=== PATIENT | male | born 1955 | race Caucasian/White ===

== ENCOUNTER 2020-04-02 14:15 | Emergency (ER) | payer OTHER ==
[~2020-04-02] VITALS: Ht 167.6 cm; Wt 74.8 kg
[2020-04-02 14:53] LABS: BASOPHILS ABSOLUTE AUTO 0.05 K/mm3 (0.00-0.23); BASOPHILS PERCENT AUTO 1 % (0-2); EOSINOPHILS ABSOLUTE AUTO 0.17 K/mm3 (0.00-0.68); EOSINOPHILS PERCENT AUTO 2 % (0-6); Hematocrit 45.5 % (37.0-53.0); Hemoglobin 15.3 g/dL (13.5-17.5); IMMATURE GRAN ABSOLUTE AUTO 0.03 K/mm3 (0.00-0.10); IMMATURE GRAN PERCENT AUTO 0 % (0-1); LYMPHOCYTES ABSOLUTE AUTO 1.16 K/mm3 (0.84-5.20); LYMPHOCYTES PERCENT AUTO 15 % (21-46); MONOCYTES ABSOLUTE AUTO 0.81 K/mm3 (0.16-1.47); MONOCYTES PERCENT AUTO 10 % (4-13); Mean Corpuscular HGB 31.7 pg (26.0-34.0); Mean Corpuscular HGB Conc 33.6 g/dL (31.5-36.5); Mean Corpuscular Volume 94 fL (80-100); Mean Platelet Volume 10.5 fL (9.1-12.4); NEUTROPHILS ABSOLUTE AUTO 5.74 K/mm3 (1.96-9.15); NEUTROPHILS PERCENT AUTO 72 % (41-73); Platelet Count 297 K/mm3 (150-400); RDW Coefficient Variation 13.1 % (11.7-14.2); RDW Standard Deviation 44.6 fL (35.1-46.3); Red Blood Cell Count 4.83 M/mm3 (4.30-5.90); White Blood Cell Count 7.96 K/mm3 (4.00-11.30)
[2020-04-02 15:06] LABS: Alanine Aminotransfer (ALT/SGP 28 U/L (12-78); Albumin, Blood 3.6 g/dL (3.4-5.0); Albumin/Globulin Ratio 0.9 (0.8-1.8); Alk Phos 74 U/L (50-136); Anion Gap 6 mmol/L (6-16); Aspartate Aminotrans (AST/SGOT 32 U/L (12-37); Bilirubin, Total 0.4 mg/dL (0.1-1.0); Blood Urea Nitrogen 13 mg/dL (8-24); Bun/Creatinine Ratio 18.2 (12.0-20.0); CO2, Blood 27 mmol/L (21-32); Calcium, Blood 8.8 mg/dL (8.5-10.1); Chloride, Blood 109 mmol/L (98-108); Creatinine, Blood 0.71 mg/dL (0.60-1.20); Globulin, Blood 3.8 g/dL (2.2-4.0); Glomerular Filtration Rate >60 (60-); Glucose, Blood 76 mg/dL (70-99); Potassium, Blood 4.3 mmol/L (3.5-5.5); Sodium, Blood 142 mmol/L (136-145); Total Protein, Blood 7.4 g/dL (6.4-8.2); Troponin I <0.015 ng/mL (0.000-0.040)
[2020-04-02] MEDS ORDERED: Prinivil10 MG PO (17:33)
== END 2020-04-02 17:57 | disposition home or self-care (01) ==
LOC: ER 14:15
PROVIDERS: Physician Assistant
DX: I10 Essential (primary) hypertension (principal); R94.31 Abnormal electrocardiogram [ECG] [EKG]; F17.210 Nicotine dependence, cigarettes, uncomplicated
CPT/HCPCS: 71046; 80053; 83735; 83880; 84484; 85025; 93005; 93010; 99285-25; A9270

== ENCOUNTER 2020-04-13 13:50 | Emergency (ER) | payer OTHER ==
[~2020-04-13] VITALS: Ht 167.6 cm; Wt 56.7 kg
[~2020-04-13 13:50] MED LIST: Prinivil10 MG PO
[2020-04-13] MEDS ORDERED: AMLO5 PO (15:17)
== END 2020-04-13 15:32 | disposition home or self-care (01) ==
LOC: ER 13:50
DX: I10 Essential (primary) hypertension (principal); Z79.899 Other long term (current) drug therapy; F17.210 Nicotine dependence, cigarettes, uncomplicated
CPT/HCPCS: 99282

== ENCOUNTER 2020-06-22 17:00 | Inpatient (IN) | payer OTHER ==
[~2020-06-22] VITALS: Ht 167.6 cm; Wt 55.8 kg
[~2020-06-22 17:00] MED LIST changes: +AMLO5 PO
[2020-06-22 18:46] LABS: BASOPHILS ABSOLUTE AUTO 0.06 K/mm3 (0.00-0.23); BASOPHILS PERCENT AUTO 1 % (0-2); EOSINOPHILS ABSOLUTE AUTO 0.08 K/mm3 (0.00-0.68); EOSINOPHILS PERCENT AUTO 1 % (0-6); Hematocrit 42.1 % (37.0-53.0); Hemoglobin 14.9 g/dL (13.5-17.5); IMMATURE GRAN ABSOLUTE AUTO 0.03 K/mm3 (0.00-0.10); IMMATURE GRAN PERCENT AUTO 0 % (0-1); LYMPHOCYTES ABSOLUTE AUTO 0.89 K/mm3 (0.84-5.20); LYMPHOCYTES PERCENT AUTO 9 % (21-46); MONOCYTES ABSOLUTE AUTO 0.92 K/mm3 (0.16-1.47); MONOCYTES PERCENT AUTO 9 % (4-13); Mean Corpuscular HGB 33.3 pg (26.0-34.0); Mean Corpuscular HGB Conc 35.4 g/dL (31.5-36.5); Mean Corpuscular Volume 94 fL (80-100); Mean Platelet Volume 9.5 fL (9.1-12.4); NEUTROPHILS ABSOLUTE AUTO 8.28 K/mm3 (1.96-9.15); NEUTROPHILS PERCENT AUTO 81 % (41-73); Platelet Count 345 K/mm3 (150-400); RDW Coefficient Variation 14.6 % (11.7-14.2); RDW Standard Deviation 50.5 fL (35.1-46.3); Red Blood Cell Count 4.47 M/mm3 (4.30-5.90); White Blood Cell Count 10.26 K/mm3 (4.00-11.30)
[2020-06-22 18:58] LABS: International Normalized Ratio 1.44; Prothrombin Time Results 15.2 Sec (9.7-11.5)
[2020-06-22 19:04] LABS: Alanine Aminotransfer (ALT/SGP 196 U/L (12-78); Albumin, Blood 3.1 g/dL (3.4-5.0); Albumin/Globulin Ratio 0.8 (0.8-1.8); Alk Phos 61 U/L (50-136); Anion Gap 8 mmol/L (6-16); Aspartate Aminotrans (AST/SGOT 123 U/L (12-37); Bilirubin, Total 0.6 mg/dL (0.1-1.0); Blood Urea Nitrogen 23 mg/dL (8-24); Bun/Creatinine Ratio 26.9 (12.0-20.0); CO2, Blood 22 mmol/L (21-32); Chloride, Blood 109 mmol/L (98-108); Creatinine, Blood 0.85 mg/dL (0.60-1.20); Globulin, Blood 3.7 g/dL (2.2-4.0); Glomerular Filtration Rate >60 (60-); Glucose, Blood 109 mg/dL (70-99); Potassium, Blood 3.4 mmol/L (3.5-5.5); Sodium, Blood 139 mmol/L (136-145); Total Protein, Blood 6.8 g/dL (6.4-8.2)
--- NOTE | 2020-06-23 04:09 | NUR ---
SHIFT SUMMARY PT ER ADMIT THIS SHIFT FOR ISCHEMIA OF THE LEFT LOWER EXT 2ND AND 3RD TOE ARE BLACK, NECROTIC AND GANGRENOUS. PT WAS LIVING AT HOME ALONE IN POOR CONDITIONS PRIOR TO HIS ADMISSION. HE CAME IN TO ER COVERED IN FECES. TOES ARE OPEN TO AIR AND ARE WITHOUT DRIANAGE. FOUL ODOR IS PRESENT, UNABLE TO PALPATE PULSES IN LEFT FOOT. ADMITTING MD DR. REYES, IS ALREADY AWARE OF THIS. FOOT IS PAINFUL TO TOUCH. PAIN IS RELIEVED WITH IV FENTANYL. HEPARIN GTT INITIATED PER ORDERS. PLAN IS FOR CONSULT WITH DR. CID TODAY AND DR. BELLO. PT HYPERTENSIVE, BUT TRENDING DOWN. NO ACUTE CHANGES SINCE ADMISSION. PICURES OF LEFT LOWER EXT TAKEN AND PLACED IN CHART. BED IN LOWEST POSITION, CALL LIGHT WITHIN REACH.
[2020-06-23 05:22] LABS: BASOPHILS ABSOLUTE AUTO 0.05 K/mm3 (0.00-0.23); BASOPHILS PERCENT AUTO 1 % (0-2); EOSINOPHILS ABSOLUTE AUTO 0.07 K/mm3 (0.00-0.68); EOSINOPHILS PERCENT AUTO 1 % (0-6); Hematocrit 38.9 % (37.0-53.0); Hemoglobin 13.6 g/dL (13.5-17.5); IMMATURE GRAN ABSOLUTE AUTO 0.03 K/mm3 (0.00-0.10); IMMATURE GRAN PERCENT AUTO 0 % (0-1); LYMPHOCYTES ABSOLUTE AUTO 1.03 K/mm3 (0.84-5.20); LYMPHOCYTES PERCENT AUTO 12 % (21-46); MONOCYTES ABSOLUTE AUTO 0.66 K/mm3 (0.16-1.47); MONOCYTES PERCENT AUTO 8 % (4-13); Mean Corpuscular HGB 33.3 pg (26.0-34.0); Mean Corpuscular Volume 95 fL (80-100); Mean Platelet Volume 9.6 fL (9.1-12.4); NEUTROPHILS ABSOLUTE AUTO 6.77 K/mm3 (1.96-9.15); NEUTROPHILS PERCENT AUTO 79 % (41-73); Platelet Count 297 K/mm3 (150-400); RDW Coefficient Variation 14.6 % (11.7-14.2); RDW Standard Deviation 51.1 fL (35.1-46.3); Red Blood Cell Count 4.09 M/mm3 (4.30-5.90); White Blood Cell Count 8.61 K/mm3 (4.00-11.30)
[2020-06-23 05:47] LABS: Alanine Aminotransfer (ALT/SGP 151 U/L (12-78); Albumin, Blood 2.6 g/dL (3.4-5.0); Albumin/Globulin Ratio 0.7 (0.8-1.8); Alk Phos 59 U/L (50-136); Anion Gap 8 mmol/L (6-16); Aspartate Aminotrans (AST/SGOT 79 U/L (12-37); Bilirubin, Total 0.7 mg/dL (0.1-1.0); Blood Urea Nitrogen 19 mg/dL (8-24); Bun/Creatinine Ratio 25.5 (12.0-20.0); CO2, Blood 21 mmol/L (21-32); Calcium, Blood 8.2 mg/dL (8.5-10.1); Chloride, Blood 109 mmol/L (98-108); Creatinine, Blood 0.74 mg/dL (0.60-1.20); Globulin, Blood 3.5 g/dL (2.2-4.0); Glomerular Filtration Rate >60 (60-); Glucose, Blood 102 mg/dL (70-99); Potassium, Blood 3.3 mmol/L (3.5-5.5); Sodium, Blood 138 mmol/L (136-145); Total Protein, Blood 6.1 g/dL (6.4-8.2)
--- NOTE | 2020-06-23 06:36 | NUR ---
PHARMACY CALLED WITH APTT RESULTS AT 0600. [address] PER [facility] LEAVE RATE IS, NO CHANGE.
--- NOTE | 2020-06-23 15:02 | NUR ---
Met with pt at Medical floor RN request. Pt was brought to the ED after a call to EMT's from pt's sister. Pt lives alone, and has been attempting to manage gangrenous toes on his left foot. He agreed to come to the hospital for evaluation, and it seems likely pt will have amputation of some of his left foot toes. Pt is aware of this. Unsure what the plan post amputation will be yet in terms of living arrangement. Pt does not volunteer any extra informaion at this time. He denies pain.
--- NOTE | 2020-06-23 18:11 | NUR ---
SHIFT SUMMARY- PT HAS HAD NO ACUTE CHANGE T/O THE SHIFT. MEDICATED FOR PAIN ONCE, PT DECLINED THE NEED FOR PAIN MEDICATION AT OTHER TIMES. PT TO BE NPO AT MIDNIGHT FOR PLANNED REVASCULARIZATION SURGERY WITH DR CID TOMORROW. DR BELLO WILL SEE HIM AFTER DR CID IS DONE WITH HIS PROCEDURE. PT IN BED CALL LIGHT IN REACH. PT MOVES HIS FEET AROUND FREQUENTLY LEFT FOOT IS CONSTANTLY BEING REPOSITIONED, LIKE HE CAN'T QUITE FIND A COMFORTABLE POSSITION FOR IT. THERE IS NO PALPABLE PULSE ON THE TOP OF THE LEFT FOOT, AND IT CAN NOT BE FOUND BY DOPPLER EITHER. THERE IS A PULSE IN THE BACK OG THE ANKLE THAT CAN BE LOCATED WITH DOPPLER PER DR CID'S PA SRAVANTHI THIS SEEMS MORE VASCULAR NOT ARTERIAL. WILL PASS ALL ON IN BEDSIDE REPORT TO NIGHT RN. PT IN BED HEPARIN DRIP RUNNING AT THE SAME RATE THIS MORNING (PER PHARMACY). CALL LIGHT IN REACH.
[2020-06-24 06:06] LABS: Influenza A, PCR Negative (NEGATIVE); Influenza B, PCR Negative (NEGATIVE); Resp Syncytial Virus, PCR Negative (NEGATIVE); SARS-Cov-2 (COVID-19) PCR, MMC Negative (NEGATIVE)
--- NOTE | 2020-06-24 06:36 | NUR ---
SHIFT SUMMARY: PATIENT IS A&OX3, DOES NOT KNOW DATE. VSS. HEPARIN GTT IS INFUSING PER PHARMACY DIRECTION WITH A CHANGE OF RATE TO 16 KG/HR FROM 16.5 KG/HR. NPO SINCE MN, PATIENT SLEP WELL. USING THE URINAL INDEPENDANTLY. URINE IN DARK DARLINE. IV FENATNYL IS GIVEN X 1 WITH GOOD EFFECT.
--- NOTE | 2020-06-24 15:00 | NUR ---
PT HAD A LARGE BLACK STOOL THAT WAS ALL LOOSE. CALLED DR CISNEROS PT IS ON A HEPARIN DRIP. VITALS STABLE. BED BATH COMPLETED AND A SAMPLE SENT TO THE LAB FOR OCCULT GUIACC.
[2020-06-24 15:47] LABS: Stool Occult Blood Guaiac 1 Pos (Neg)
--- NOTE | 2020-06-24 15:54 | NUR ---
STOOL SAMPLE CAME BACK POSSITIVE FOR OCCULT GUIACC. CALLED DR CISNEROS WITH THE RESULT. PT ALREADY IN THE BARKING MACHINE FEEDER FOR THE REVASCULARIZATION. VS STABLE AT THE TIME HE LEFT HERE. PT AWAKE ALERT AND PLEASENT. DR CISNEROS AWARE AND WILL CALL DR CID TO MAKE A PLAN.
[2020-06-24 16:11] LABS: Hematocrit 37.3 % (37.0-53.0); Hemoglobin 13.1 g/dL (13.5-17.5)
--- NOTE | 2020-06-24 17:39 | NUR ---
Met with pt today to follow up on yesterday's conversation. Pt appears slightly figidty, and does admit to feeling nervous, states he waited so long to be seen for his toes because he was scared, and then states he feels a little bit relieved, but still scared. He doesn't initiate conversation, and only answers when I ask direct questions. He is scheduled for revascularization of the leg today, and depending on how it goes, he will eventually have necrotic toes amputated.
--- NOTE | 2020-06-24 18:30 | NUR ---
TRANSFER NOTE- PT TRANSFERED TO PCU 14 POST REVASCULARIZATION. CALLED TELEPHONE REPORT TO TEST BORER HELPERMICHELINE NAILS. PASSED ON THE UPDATES ABOUT THE POSSIBLE GI BLEED AND DR ENNIS BEING CONSULTED. DR ENNIS CAME TO [facility] TO SEE THE PT HE WAS REDIRECTED TO PCU 14.
[2020-06-24 19:45] LABS: Hematocrit 39.4 % (37.0-53.0); Hemoglobin 13.6 g/dL (13.5-17.5)
--- NOTE | 2020-06-24 21:00 | NUR ---
06/24/20 Barndee Sandy History, Chart, Medications and Allergies reviewed before start of procedure.PATIENT DETERMINED TO BE ASA APPROPRIATE FOR PROPOFOL SEDATION PRIOR TO START OF PROCEDURE BY .MONITOR INTACT WITH CONTINUOUS PULSE OXIMETRY AND INTERMITTENT BP.3-LEAD EKG REVIEWED WITH PHYSICIAN PRIOR TO START OF PROCEDURE.O2 VIA POM INTACT THROUGHOUT SEDATION/PROCEDURE.
[2020-06-24 21:53] LABS: Hematocrit 37.4 % (37.0-53.0); Hemoglobin 12.8 g/dL (13.5-17.5)
[2020-06-25 00:31] LABS: Hematocrit 35.3 % (37.0-53.0); Hemoglobin 12.6 g/dL (13.5-17.5)
[2020-06-25 02:13] LABS: Hematocrit 35.1 % (37.0-53.0); Hemoglobin 12.6 g/dL (13.5-17.5)
--- NOTE | 2020-06-25 04:59 | NUR ---
SHIFT SUMMARY PATIENT IS ALERT AND ORIENTED X SELF, CITY, AND MONTH BUT UNBALE TO STATE YEAR, OR THAT HE WAS IN THE HOSPITAL. EASILY REORIENTED AND AWARE OF LIMITATIONS. CIWAs OF 2. PATIENT POST ANGIO FOR REVASC IN LLE. RIGHT GROIN AND LEFT TIBIAL SITES WITH NO DRAINAGE AND DRESSINGS C/D/I. NO HEMATOMA NOTICED. LEFT FOOT PINK, PAINFUL, UNABLE TO FIND PULSE WITH DOPPLER. 2ND AND 3RD TOES BLACK. MEDICATED FOR PAIN PER EMAR. PATIENT BACK FROM [facility] WITH DR. SERNA @2119. PATIENT NPO @MIDNIGHT FOR POSSIBLE PROCEDURE TODAY. 02 SATS 99% ON RA. REPOSITIONS SELF IN BED. VSS, NO ACUTE CHANGES. CALL LIGHT IN REACH.
[2020-06-25 05:09] LABS: BASOPHILS ABSOLUTE AUTO 0.03 K/mm3 (0.00-0.23); BASOPHILS PERCENT AUTO 0 % (0-2); EOSINOPHILS ABSOLUTE AUTO 0.06 K/mm3 (0.00-0.68); EOSINOPHILS PERCENT AUTO 1 % (0-6); Hematocrit 34.3 % (37.0-53.0); Hemoglobin 12.2 g/dL (13.5-17.5); IMMATURE GRAN ABSOLUTE AUTO 0.03 K/mm3 (0.00-0.10); IMMATURE GRAN PERCENT AUTO 0 % (0-1); LYMPHOCYTES ABSOLUTE AUTO 0.86 K/mm3 (0.84-5.20); LYMPHOCYTES PERCENT AUTO 11 % (21-46); MONOCYTES ABSOLUTE AUTO 0.97 K/mm3 (0.16-1.47); MONOCYTES PERCENT AUTO 13 % (4-13); Mean Corpuscular HGB 33.6 pg (26.0-34.0); Mean Corpuscular HGB Conc 35.6 g/dL (31.5-36.5); Mean Corpuscular Volume 95 fL (80-100); Mean Platelet Volume 9.5 fL (9.1-12.4); NEUTROPHILS ABSOLUTE AUTO 5.73 K/mm3 (1.96-9.15); NEUTROPHILS PERCENT AUTO 75 % (41-73); Platelet Count 249 K/mm3 (150-400); RDW Coefficient Variation 14.6 % (11.7-14.2); RDW Standard Deviation 50.3 fL (35.1-46.3); Red Blood Cell Count 3.63 M/mm3 (4.30-5.90); White Blood Cell Count 7.68 K/mm3 (4.00-11.30)
[2020-06-25 05:27] LABS: Alanine Aminotransfer (ALT/SGP 71 U/L (12-78); Albumin, Blood 2.7 g/dL (3.4-5.0); Albumin/Globulin Ratio 0.8 (0.8-1.8); Alk Phos 59 U/L (50-136); Anion Gap 6 mmol/L (6-16); Aspartate Aminotrans (AST/SGOT 28 U/L (12-37); Bilirubin, Total 0.5 mg/dL (0.1-1.0); Blood Urea Nitrogen 6 mg/dL (8-24); Bun/Creatinine Ratio 8.7 (12.0-20.0); CO2, Blood 25 mmol/L (21-32); Calcium, Blood 8.3 mg/dL (8.5-10.1); Chloride, Blood 107 mmol/L (98-108); Creatinine, Blood 0.69 mg/dL (0.60-1.20); Globulin, Blood 3.3 g/dL (2.2-4.0); Glomerular Filtration Rate >60 (60-); Glucose, Blood 90 mg/dL (70-99); Magnesium, Blood 1.9 mg/dL (1.6-2.4); Potassium, Blood 3.4 mmol/L (3.5-5.5); Sodium, Blood 138 mmol/L (136-145)
--- NOTE | 2020-06-25 14:11 | NUR ---
REPORT TO VAHE COLLINS RN. CALLED TO OR FOR PAIN MEDS, HAVE ORDER FROM THE FLOOR, OK WITH GIVING MEDS PRE-OP.
--- NOTE | 2020-06-25 16:49 | NUR ---
STAUS CHANGE WHILE PT WAS IN PACU AND WE WERE WAITING TO HAVE ROOM ON SURGICAL FLOOR WAS GOING TO BE AWHILE SO PT WENT BACK TO PCU
--- NOTE | 2020-06-25 17:50 | NUR ---
SHIFT NOTE PT RETURNED FROM DAY SURGERY THIS EVENING POST AMPUTATION TO LT 2nd AND 3rd TOES. PT ARRIVES PAIN FREE. GOOD CAP REFILL NOTED TO LT LEG THAT IS EXPOSED. PT ALERT, EATING DINNER. VSS. NO ACTIVE BLEEDING FROM SURGICAL SITE, DRESSING CLEAN DRY AND INTACT.
--- NOTE | 2020-06-25 19:40 | NUR ---
REPORT FROM JESU IN PCU. SHE REPORTED SHE WOULD BRING PT TO ROOM 219 AFTER REPORT. REPORT GIVEN TO JOSETTE TOBIAS.
--- NOTE | 2020-06-25 20:27 | NUR ---
ASSUMED CARE PT IS A/O X4. VITALS ARE STABLE. DENIES CHEST PAIN AND SOB. PT IS COMPLAINING OF LEFT HEEL PAIN OF 5/10. WILL BE TRANSFERING TO ROOM 219 SURGICAL FLOOR.
--- NOTE | 2020-06-25 20:50 | NUR ---
PT LEFT FLOOR WITH ALL BELONGINGS TO ROOM [id number].
--- NOTE | 2020-06-25 21:21 | NUR ---
IN-HOUSE TRANSFERED FROM PCU TO ROOM 219 AT 2100 VIA WHEELCHAIR. PT AOX4. TRANSFERRED W/ 2 PERSON MAX ASSIST STAND AND PIVOT FROM W/C TO BED. NWB ON LEFT LEG. LEFT FOOT WRAPPED WITH JOSE MANUEL WRAPPED, CDI. R GROIN SURG SITE CDI. TIBIAL PULSES ARE VERY WEAK. R RADIAL PULSE STRONG. CAP REFILL WNL. VSS. PT ON ROOM AIR. HYPERTENSIVE, 177/91MMHG. PT DENIES CHEST PAIN, SOB, NUMBNESS AND TINGLING SENSATION. PT USED URINAL, OUTPUT 200ML WHEN HE CAME IN. CALM AND ANSWERS QUESTIONS APPROPRIATELY. CALL LIGHT W/IN REACH. REORIENT IN ROOM.
--- NOTE | 2020-06-26 02:27 | NUR ---
HYPERTENSIVE (SEE EMR) PT HAS BEEN HYPERTENSIVE (ASYMPTOMATIC) SINCE HE CAME IN FROM PCU. CALLED HOSPITALIST, ADDRESS THE ISSUE. NEW MED ORDER FOR PRN BP MED - HYDRALAZINE 10MG Q4 AND LABETALOL 10MG Q4 BY DOMINGO HERNANDEZ. HYDRALAZINE GIVEN VIA, DID NOT HELPED. LABETALOL GIVEN 2 HRS AFTER. BP IMPROVED TO 169/83MMHG WITH 82 HR. PT IS RELAX, CALM AND COMFORTABLE IN BED. CALL LIGHT WITHIN REACH.
--- NOTE | 2020-06-26 03:29 | NUR ---
SHIFT SUMMARY POD2 ON LLE REVASCULARIZATION W/ ;PUSH UPPER ENTEROSCOPY W/ POD1 ON 2ND AND 3RD LEFT TOE AMPUTATION W/ DR. BELLO. PT WAS TRANSFERED FROM PCU AT 2100 LAST NIGHT. PT AOX4. SLOW TO RESPOND BUT ANSWERS APPROPRIATELY. PT REPORTS PAIN ON LLE. PAIN MANAGED WITH FENTANYL 25MCG Q4. HYPERTENSIVE UNTIL 0200, ADMINISTERED HYDRALAZINE AND LABETALOL PRN Q4. PT WAS ASYMPTOMATIC. DENIES CHEST PAIN, SOB, NUMBNESS AND TINGLING SENSATION. HE IS ON TELE - SINUS 96. NWB ON LLE. L FOOT W/JOSE MANUEL WRAPPED, CDI. R GROIN WITH SURG SITE FROM REVASCULARIZATION, CDI. TOLERATING PO CARDIAC DIET, DENIES N/V. VOIDING ADEQUATELY USING URINAL. PT DID NOT GET ENOUGH SLEEP, AWAKE TIL 0330 AM. BUT COMFORTABLE AND RELAX IN BED. CALL LIGHT WITHIN REACH. BED IN LOW POSITION.
[2020-06-26 05:26] LABS: BASOPHILS PERCENT AUTO 0 % (0-2); EOSINOPHILS PERCENT AUTO 0 % (0-6); Hemoglobin 11.8 g/dL (13.5-17.5); IMMATURE GRAN ABSOLUTE AUTO 0.04 K/mm3 (0.00-0.10); IMMATURE GRAN PERCENT AUTO 0 % (0-1); LYMPHOCYTES ABSOLUTE AUTO 0.32 K/mm3 (0.84-5.20); LYMPHOCYTES PERCENT AUTO 3 % (21-46); MONOCYTES ABSOLUTE AUTO 0.72 K/mm3 (0.16-1.47); MONOCYTES PERCENT AUTO 7 % (4-13); Mean Corpuscular HGB 32.5 pg (26.0-34.0); Mean Corpuscular HGB Conc 34.7 g/dL (31.5-36.5); Mean Corpuscular Volume 94 fL (80-100); Mean Platelet Volume 9.9 fL (9.1-12.4); NEUTROPHILS ABSOLUTE AUTO 8.64 K/mm3 (1.96-9.15); NEUTROPHILS PERCENT AUTO 89 % (41-73); Platelet Count 254 K/mm3 (150-400); RDW Coefficient Variation 14.5 % (11.7-14.2); RDW Standard Deviation 48.7 fL (35.1-46.3); Red Blood Cell Count 3.63 M/mm3 (4.30-5.90); White Blood Cell Count 9.72 K/mm3 (4.00-11.30)
[2020-06-26 06:04] LABS: Anion Gap 6 mmol/L (6-16); Blood Urea Nitrogen 7 mg/dL (8-24); Bun/Creatinine Ratio 9.1 (12.0-20.0); CO2, Blood 26 mmol/L (21-32); Calcium, Blood 8.7 mg/dL (8.5-10.1); Chloride, Blood 103 mmol/L (98-108); Creatinine, Blood 0.77 mg/dL (0.60-1.20); Glomerular Filtration Rate >60 (60-); Glucose, Blood 224 mg/dL (70-99); Potassium, Blood 3.5 mmol/L (3.5-5.5); Sodium, Blood 135 mmol/L (136-145)
--- NOTE | 2020-06-26 18:01 | NUR ---
SHIFT SUMMARY PT ALERT AND ORIENTED THROUGHOUT SHIFT. WITHDRAWN AFFECT. NWB TO LEFT TRANS METATARSAL AMPUTATION. GAUZE AND JOSE MANUEL WRAP C/D/I. MEDICATED FOR PAIN PER EMAR. SALINE LOCKED. TOLERATING REGULAR DIET AND ORAL FLUIDS. VOIDING WELL. TELE DC'D THIS SHIFT. PLAN TO DISCHARGE TO SNF.
--- NOTE | 2020-06-27 04:20 | NUR ---
SHIFT SUMMARY PT HAS BEEN A/O X3-4 OVERNIGHT. S/P AMPUTATIONS OF LEFT TOES, DRESSING CDI. PAIN MANAGED WITH PO PAIN MED PER ORDER. PT HAS BEEN TOLERATING PO INTAKE AND VOIDING. NO ACUTE CHANGES OVERNIGHT. PT RESTING AT THIS TIME, CALL LIGHT IN REACH.
--- NOTE | 2020-06-27 16:39 | NUR ---
SHIFT SUMMARY PT POD 2 L TOE AMPUTATION W/REVASC BLE. JOSE MANUEL WRAP TO L FOOT C/D/I. BLE WARM AND PINK. R GROIN SITE FROM ANGIO WITH TEGADERM DRESSING, NO SWELLING OR DRAINAGE PRESENT. PAIN MANAGED PO PER EMAR. THERAPY IN TO WORK WITH PT. DENIES N/V, TOLERATING REGULAR DIET.
--- NOTE | 2020-06-27 21:03 | NUR ---
ASSUMED CARE AT 1900. PT A/O X3-4. REPORTS PAIN IS WELL MANAGED AT THIS TIME. PT IS PLEASANT AND COOPERATIVE WITH CARE. PT RESTING WITH HOB AND L LEG ELEVATED, CALL LIGHT IN REACH.
--- NOTE | 2020-06-28 04:34 | NUR ---
SHIFT SUMMARY PT IS A/O X3-4, SLOW TO RESPOND, ABLE TO MAKE NEEDS KNOWN. DRESSING TO L FOOT CDI OVERNIGHT. DRESSING TO R GROIN WNL. TOLERATING PO INTAKE AND VOIDING. PAIN MANAGED WITH NORCO X2 PRN. NO ACUTE CHANGES OVERNIGHT. PT RESTING IN BED AT THIS TIME. CALL LIGHT IN REACH.
--- NOTE | 2020-06-28 19:15 | NUR ---
SHIFT SUMMARY PT HAS BEEN IN A PLEASENT MOOD THROUGHOUT SHIFT. PT HAS BEEN RELAXING IN BED AND WATCHING TV THROUGHOUT SHIFT. PT A&O X4, THOUGH PT DOES EXHIBIT SOME SIGNS OF CONFUSION SUCH RIPPING/BALLING UP PEICES OF HIS ATTENDS. PT RECIEVED A BED BATH AND LINEN DURING SHIFT.PT LLE IS ELEVATED ON PILLOWS. PT VSS. CALL LIGHT IS WITHIN REACH.
--- NOTE | 2020-06-28 20:03 | NUR ---
SHIFT SUMMARY PAIN MANAGED WITH PO PAIN MEDICATION. PT HAS BEEN A&O X 3 TODAY, SOME MILD CONFUSTION. PLAN FOR DC TO SNF WHEN PT IS STABLE. REPORT GIVEN TO NISHA TOBIAS.
[2020-06-29 04:35] LABS: BASOPHILS ABSOLUTE AUTO 0.04 K/mm3 (0.00-0.23); BASOPHILS PERCENT AUTO 0 % (0-2); EOSINOPHILS ABSOLUTE AUTO 0.11 K/mm3 (0.00-0.68); EOSINOPHILS PERCENT AUTO 1 % (0-6); Hematocrit 36.5 % (37.0-53.0); Hemoglobin 12.1 g/dL (13.5-17.5); IMMATURE GRAN ABSOLUTE AUTO 0.04 K/mm3 (0.00-0.10); IMMATURE GRAN PERCENT AUTO 0 % (0-1); LYMPHOCYTES ABSOLUTE AUTO 1.27 K/mm3 (0.84-5.20); LYMPHOCYTES PERCENT AUTO 12 % (21-46); MONOCYTES ABSOLUTE AUTO 1.27 K/mm3 (0.16-1.47); MONOCYTES PERCENT AUTO 12 % (4-13); Mean Corpuscular HGB 33.6 pg (26.0-34.0); Mean Corpuscular HGB Conc 33.2 g/dL (31.5-36.5); Mean Platelet Volume 9.9 fL (9.1-12.4); NEUTROPHILS ABSOLUTE AUTO 7.83 K/mm3 (1.96-9.15); NEUTROPHILS PERCENT AUTO 74 % (41-73); Platelet Count 349 K/mm3 (150-400); RDW Coefficient Variation 14.6 % (11.7-14.2); RDW Standard Deviation 54.4 fL (35.1-46.3); White Blood Cell Count 10.56 K/mm3 (4.00-11.30)
[2020-06-29 04:40] LABS: Mean Corpuscular Volume 101 fL (80-100)
--- NOTE | 2020-06-29 06:27 | NUR ---
SHIFT SUMMARY LYING IN SEMI FOWLERS WITH EYES CLOSED, HAS RESTED WELL THIS SHIFT. PAIN MANAGED WELL WITH PRN MEDS. AAO X4, JOHNSON, FOLLOWS ALL COMMANDS. RESPIRATIONS EVEN AND UNLABORED ON RA, WITH CLEAR LUNG CLINE. SL PIV IS PATENT. ABDOMEN SOFT AND NONDISTENDED. BOWEL TONES NOTED IN ALL QUADS. DENIES PAIN, DISCOMFORT, OR FURTHER NEEDS AT THIS TIME. SAFETY MEASURES IN PLACE. WILL CONTINUE TO MONITOR FOR NEEDS/CHANGES AND ADDRESS NEEDED. WILL GIVE HAND OFF TO ONCOMING SHIFT USING SBAR DURING BEDSIDE REPORT.
--- NOTE | 2020-06-29 11:21 | NUR ---
STAFF FROM [facility] VISITED PT. THEY WERE NOTIFIED THAT PT IS FORGETFUL/CONFUSED AT TIMES AND HAS NEEDED ORIENTED TO PLACE AND DATE Q SHIFT. PER [facility] PLAN FOR PT TO RETURN HOME WITH CAREGIVER AFTER REHAB.
--- NOTE | 2020-06-29 17:59 | NUR ---
SHIFT SUMMARY PT HAS BEEN IN PLEASENT MOOD THROUGHOUT SHIFT. PT HAS BEEN INDEPENDENTLY USING BEDPAN THROUGHOUT SHIFT. PT IS A&O X4. PT SISTER CAME IN DURING VISITING HOURS. [facility] CAME IN AND VISITED PT. PT HAS BEEN RELAXING IN BED WATCHING T.V. W/ LLE ELEVATED ON PILLOWS. VSS.
--- NOTE | 2020-06-29 19:15 | NUR ---
SHIFT SUMMARY PAIN HAS BEEN MANAGED WITH PO PAIN MEDICATION. [facility] CAME TO SEE PT TODAY AND REPORTED THEY WILL ASSIST HIM TO GET A CAREGIVER TO GO HOME WITH AFTER SNF. PT'S SISTER ALSO CAME TO VISIT AND REQUESTED THAT PT SIGN PAPERS ALLOWING HER TO ASSIST HIM WITH GETTING A CARGIVER AND WORKING WITH [facility]. SHE DID NOT APPEAR TO VISIT WITH THE PT AND ONLY STAYED LONG ENOUGH FOR THE PT TO SIGN PAPERS. WAITING FOR PLACEMENT POSSIBLY TOMORROW. REPORT GIVEN TO NISHA TOBIAS.
--- NOTE | 2020-06-30 07:55 | NUR ---
PT SLEEPING WAKES TO VERBAL STIMULI REPORTS PAIN 06/28 PT HAS BULKY DRESSING TO L FOOT C/D/I ORIGINAL PT HAS A PILLOW TO ELEVATE IT ON BUT IT WAS OFF OF IT REMINDED HIM TO ELEVEATE WILL MED FOR PAIN
--- NOTE | 2020-06-30 16:05 | NUR ---
pt unable to void bladder scan 650 in/out cath 950 ml pt voided earlier today attempted earlier unable to go
--- NOTE | 2020-06-30 20:41 | NUR ---
IVs x 2 PRESENT TO R FOREARM ON ASSESSMENT
--- NOTE | 2020-07-01 04:36 | NUR ---
SHIFT SUMMARY: DARRIN IS A&OX4, SLOW TO RESPOND. VSS, NO ACUTE EVENTS OVERNIGHT. JOSE MANUEL WRAP TO LLE C/D&I. HE IS USING THE URINAL WITHOUT DIFFICULTY, ATTENDS IN PLACE. HE IS TOLERATING PO INTAKE WELL, HAS DENIED THE NEED FOR PAIN MEDICATION THIS SHIFT. HE IS LYING IN BED WITH THE CALL LIGHT IN REACH. IV X 2 IN R FA PATENT. WILL REPORT TO DAY SHIFT RN.
--- NOTE | 2020-07-01 08:57 | NUR ---
PT UP TO SHOWER WITH THIS RN AND PT, TOLERATED WELL 2 PERSON STAND PIVOT. PT TO CHAIR AT THIS TIME. JOSE MANUEL WRAP TO L FOOT C/D/I.
--- NOTE | 2020-07-01 17:21 | NUR ---
SHIFT SUMMARY PT ALERT A&OX3, PT UNABLE TO TELL DATE. PT APPEARS WITHDRAWN AND HAS A FLAT AFFECT. POD6 TRANSMETATARSAL AMPUTATION TO L FOOT, JOSE MANUEL BANDAGE IN PLACE DUE TO GANGRENOUS TOES & L LOWER LIMB ISCHEMIA. DENIES N/T TO ALL EXTREMITIES. PT PASSING GAS AND HAVING REGULAR BOWEL MOVEMENTS. PAIN WELL CONTROLLED PER EMAR ORDERS. 2 PERSON STAND PIVOT. VSS. PT RESTING IN BED WITH CALL LIGHT IN PLACE. WAITING ON PLACEMENT FOR BOTTOM PRECIPITATOR OPERATOR CARE FOR THIS PT. WILL REPORT TO ONCOMING RN.
--- NOTE | 2020-07-02 05:29 | NUR ---
SHIFT SUMMARY: DARRIN IS A&OX4, ONLY UNABLE TO STATE THE DATE, BUT KNOWS THE MONTH AND YEAR. HE DID HAVE AN INCONTINENT BM THIS SHIFT. HE WAS ENCOURAGED TO CALL STAFF FOR ASSISTANCE. HE REPORTS ADEQUATE PAIN CONTROL WITH ONE TABLET OF NORCO. HE IS TOLERATING PO INTAKE WELL. DRESSING TO LEFT FOOT C/D&I. HE IS LYING IN BED WITH HIS CALL LIGHT IN REACH. WILL REPORT TO DAY SHIFT RN.
--- NOTE | 2020-07-02 18:01 | NUR ---
SHIFT SUMMARY VITALS HAVE BEEN STABLE THROUGHOUT THE SHIFT. PT BEING TREATED PER EMAR FOR PAIN. PT HAD TWO INCONTINENT BOWEL MOVEMENTS. CBG HAS BEEN STABLE. WILL REPORT TO ONCOMING RN.
--- NOTE | 2020-07-03 07:46 | NUR ---
PT HAD UNEVENTFUL NIGHT. VSS. DRESSING CDI. PT REP PAIN MINIMAL. MGD W/1 NORCO W/REP RELIEF. NO CHANGES NOTED TO CIRCULATION OR SENSATION. PT REPOSITIONING SELF IN BED, DECLINED TO GET OOB THIS SHIFT. PT USING URINAL TO VOID. BEDSIDE REPORT GIVEN TO NADIA Jean RN.
--- NOTE | 2020-07-03 15:40 | NUR ---
SHIFT SUMMARY REPORT GIVEN TO HAYLEE GREGORIO. POD 9 FOR REVASCULARIZATION AND POD 8 FOR LEFT TOE AMPUTATION. GAUZE AND JOSE MANUEL BANDAGE IN PLACE ON LEFT FOOT. PT HAS REPORTED SOME PAIN AND MEDICATED PER EMAR. PT IS TOLERATING FULL DIET WITHOUT COMPLAINT OF N/V. BRUISE ON LEFT HIP FROM REVASCULARIZATION. BANDAGE TO BE CHANGED TODAY. PT IS ABLE TO AMBULATE TO CHAIR AND BEDSIDE COMMODE WITH ASSISTANCE WITH GAIT BELT AND WALKER. CALL LIGHT WITHIN REACH.
--- NOTE | 2020-07-03 17:13 | NUR ---
ASSUMED CARE @ 1540 MYRON AND FLORENTINO GREGORIO ASSUMED CARE OF THE PT AT APPROX. 1540. REPORT WAS GIVEN FOR PT BY FLORENTINO ODOM. THE PT APPEARS TO BE COMFORTABLE AND DENIES PAIN. THE PT IS CURRENTLY RESTING IN BED WITH CALL LIGHT WITHIN REACH.
--- NOTE | 2020-07-03 18:26 | NUR ---
LLE AMPUTATION SITE DRESSING WAS REMOVED FROM LEFT FOOT. UNDER AMPUTATION SITE APPEARS DUSKY SKIN IMMEDIATELY AROUND THE WOUND BED APPEARS HARD. DRY BLOOD PRESENT. BRUISES TO ANTERIOR FOOT. DR. HAUSER VISUALIZED WOUND BED AND VERBALIZED OK TO CALL DR. SILVA. DR. SILVA REPORTED HE WOULD ROUND ON PT OR REPORT TO DR. MANZO FOR ROUNDING TOMORROW. PER DR. SILVA OK TO REPLACE DRESSING THAT WAS PRESENT. XEROFORM, GAUZE, EXUDRY, CAST PADDING AND JOSE MANUEL WRAP APPLIED. PULSES PRESENT UNDER DRESSING BUT WEAK. PICTURES IN CHART, CONSENT FOR PHOTO SIGNED BY PT.
--- NOTE | 2020-07-03 19:09 | NUR ---
SHIFT SUMMARY PT HAS BEEN IN PLEASENT MOOD SINCE CARE ASSUMED. PT IS A&O X4. PT IS CURRENTLY RESTING IN BED IN SEMI FOWLERS POSITION. NS ISAC REPORTED THAT THE DRESSING NEEDED TO BE CHANGED. NURSE SANCHES WAS ABLE TO CHANGE THE DRESSING DURING THIS SHIFT. THE PT CONSENTED TO PHOTO AND HAS ONE AVAILABLE IN CHART. PTS SURGICAL WOUND APPEARS PURPLE, DARK RED WITH DRYED EDGES. THE STUMP IS EXTREMLY TENDER TO TOUCH. NURSE SANCHES INFORMED THE PHYSICIAN AND PRODUCT STEWARD. NURSE SANCHES REDRESSED THE WOUND. VSS. CALL LIGHT IS WITHIN REACH.
[2020-07-04 06:44] LABS: BASOPHILS ABSOLUTE AUTO 0.04 K/mm3 (0.00-0.23); BASOPHILS PERCENT AUTO 1 % (0-2); EOSINOPHILS ABSOLUTE AUTO 0.15 K/mm3 (0.00-0.68); EOSINOPHILS PERCENT AUTO 2 % (0-6); Hematocrit 34.3 % (37.0-53.0); Hemoglobin 11.5 g/dL (13.5-17.5); IMMATURE GRAN ABSOLUTE AUTO 0.03 K/mm3 (0.00-0.10); IMMATURE GRAN PERCENT AUTO 0 % (0-1); LYMPHOCYTES ABSOLUTE AUTO 1.22 K/mm3 (0.84-5.20); LYMPHOCYTES PERCENT AUTO 15 % (21-46); MONOCYTES ABSOLUTE AUTO 1.21 K/mm3 (0.16-1.47); MONOCYTES PERCENT AUTO 15 % (4-13); Mean Corpuscular HGB Conc 33.5 g/dL (31.5-36.5); Mean Corpuscular Volume 99 fL (80-100); NEUTROPHILS ABSOLUTE AUTO 5.39 K/mm3 (1.96-9.15); NEUTROPHILS PERCENT AUTO 67 % (41-73); Platelet Count 431 K/mm3 (150-400); RDW Standard Deviation 50.7 fL (35.1-46.3); Red Blood Cell Count 3.48 M/mm3 (4.30-5.90); White Blood Cell Count 8.04 K/mm3 (4.00-11.30)
[2020-07-04 07:05] LABS: Anion Gap 6 mmol/L (6-16); Blood Urea Nitrogen 29 mg/dL (8-24); Bun/Creatinine Ratio 35.1 (12.0-20.0); CO2, Blood 22 mmol/L (21-32); Calcium, Blood 9.2 mg/dL (8.5-10.1); Chloride, Blood 107 mmol/L (98-108); Creatinine, Blood 0.83 mg/dL (0.60-1.20); Glomerular Filtration Rate >60 (60-); Glucose, Blood 94 mg/dL (70-99); Potassium, Blood 4.2 mmol/L (3.5-5.5); Sodium, Blood 135 mmol/L (136-145)
--- NOTE | 2020-07-04 17:37 | NUR ---
SHIFT SUMMARY PT HAS BEEN IN PLEASENT MOOD THROUGHOUT SHIFT. PT WAS UP TO CHAIR FOR PART OF SHIFT, TOLLERATED WELL. PT CURRENTLY RESTING IN BED WITH LLE ELEVATED. VSS. CALL LIGHT IS WITHIN REACH.
--- NOTE | 2020-07-04 19:47 | NUR ---
SHIFT SUMMARY PT IS POD# 9 FROM L TRANSMETATARSAL AMPUTATION. PT HAS BEEN OOB TO THE CHAIR, HE IS A 2 PERSON ASSIST WITH GAIT BELT AND WALKER FOR TRANSFERS. PT IS WEAK WITH TRANSFERS BUT IS ABLE TO MAINTAINT WB STATUS. DR. MANZO CONTACTED REGARDING LLE WOUND, HE STATED HE WOULD ROUND TO PT TOMORROW BUT TO LEAVE DRESSING C/D/I AT THIS TIME. PLAN FOR DC TO SNF WHEN PLACEMENT IS ARRANGED. REPORT GIVEN TO NISHA TOBIAS.
--- NOTE | 2020-07-04 19:49 | NUR ---
COCCYX DRESSING A LEAVE ON DRESSING WAS PLACED ON PT'S COCCYX AREA BY MICHELINE SANCHES. NO REDDNESS OR BREAKDOWN NOTED AT THIS TIME.
--- NOTE | 2020-07-05 04:40 | NUR ---
SHIFT SUMMARY POD10 L TRANSMETATARSAL AMPUTATION, A/O X4, VSS, TOLERATING PO, PT REMAINED IN BED T/O SHIFT, PLEASANT AND COOPERATIVE W/ ALL NURSING CARE, PAIN MANAGED PER EMAR, VOIDING WELL. NO ACUTE EVENTS THIS SHIFT, CALL LIGHT IN REACH, WILL CONTINUE TO MONITOR AND REPORT TO ONCOMING DAY RN.
--- NOTE | 2020-07-05 16:13 | NUR ---
TELEPHONE CALL TO DR BELLO RE CHECK UP ON PT INCREASING L FOOT DUSKINESS, PER HOSPITALIST REQUEST. DR BELLO IS HEADING OUT OF TOWN AND ASK THAT I CALL DR MANZO WHO IS PRINCIPAL NETWORK ENGINEER. DR MANZO RESPONDED THAT HE WILL COME IN AND SEE PT.
--- NOTE | 2020-07-05 16:20 | NUR ---
SHIFT SUMMARY PT A&OX4, VSS, POD10 L FOOT TMA, GAUZE/JOSE MANUEL WRAP APPEARS CDI, ELEVATED ON PILLOW; AMB W/FWW & 1 PP MOD ASSIST W/FWW & GB, NWB. PAIN MANAGED WITH 5 NORCO. NA PO. VOIDING WELL, URINAL. WILL REPORT TO ONCOMING NOC RN.
--- NOTE | 2020-07-06 06:38 | NUR ---
SHIFT SUMMARY POD 11 L TRANSMETATARSAL AMPUTATION, A/O X4, VSS, TOLERATING PO, PAIN WELL MANAGED, NO ACUTE EVENTS THIS SHIFT. CALL LIGHT IN REACH, WILL CONTINUE TO MONITOR AND REPORT TO ONCOMING DAY RN.
--- NOTE | 2020-07-06 18:00 | NUR ---
SHIFT SUMMARY PT A&OX4, CALLS APPROPRIATELY. POD12 REVASC. POD11 AMP L TOES, DRESSING CHANGED BY DR MANZO TODAY. PAIN MANAGED WITH 5 MG NORCO PRN. NA PO ADA DIET. VOIDING WELL, URINAL AT BEDSIDE, ATTENDS ON FOR LEAKAGE. AMB W/FWW, GB, MOD/MAX ASSIST. WILL REPORT TO ONCOMING NISHA TOBIAS.
--- NOTE | 2020-07-07 06:30 | NUR ---
SHIFT SUMMARY S/P TRANSMETATARSAL AMPUTATION LLE 06/25, A/O X4, VSS, TOLERATING PO, PT REMAINED IN BED T/O SHIFT, PAIN WELL MANAGED PER EMAR, NO ACUTE EVENTS THIS SHIFT. CALL LIGHT IN REACH, WILL CONTINUE TO MONITOR AND REPORT TO ONCOMING DAY RN.
--- NOTE | 2020-07-07 17:14 | NUR ---
SHIFT SUMMARY PT HAS BEEN IN PLEASENT MOOD THROUGHOUT SHIFT. PT WAS UP IN CHAIR FOR BREAKFAST AND LUNCH. PT IS CURRENTLY IN BED RESTING WITH LLE ELEVATED ON PILLOW. PT HAD A WEAK GAIT FOR TRANSFER. PT IS A&O X4. PT VSS. CALL LIGHT IS WITHIN REACH.
--- NOTE | 2020-07-08 03:26 | NUR ---
SHIFT SUMMARY S/P REVASCULARIZATION AND L TRANSMETATARSAL AMPUTATION, A/O X4, VSS, TOLERATING PO, INTERMITTENT INCONTINENCE W/ ATTENDS IN PLACE AND MEPILEX ON COCCYX FOR PREVENTION, PAIN HAS REMAINED AT A TOLERABLE LEVEL PER PT REPORT. NO ACUTE EVENTS THIS SHIFT, CALL LIGHT IN REACH, WILL CONTINUE TO MONITOR AND REPORT TO ONCOMING DAY RN.
--- NOTE | 2020-07-08 16:56 | NUR ---
PT ENCOURAGED TO DRINK MORE FLUIDS SINCE HE HAS HAD DECREASED OUTPUT THIS SHIFT. WILL CONTINUE TO MONITOR AND PROVIDE FLUIDS.
--- NOTE | 2020-07-08 17:17 | NUR ---
SHIFT SUMMARY PT HAS BEEN IN PLEASENT MOOD THROUGHOUT SHIFT. PT SISTER VISITED BRIEFLY DURING SHIFT. PT WAS UP IN CHAIR FOR BREAKFAST. PT HAS HAS LOW URINE OUTPUT APPEARS DARK AND CONCENTRATED. MICHELINE SANCHES ENCOURAGED FLUID INTAKE. PT IS CURRENTLY RESTING IN BED WITH LLE ELEVATED ON PILLOW. DRESSING C/D/I. CALL LIGHT WITHIN REACH. VSS.
--- NOTE | 2020-07-08 17:48 | NUR ---
SHIFT SUMMARY PT REMAINS IN THE HOSPITAL WAITING FOR PLACEMENT AT [facility]. PT'S SISTER VISITED FOR A SHORT TIME TODAY, SHE REPORTED SHE WAS HAVING PT SIGN PAPERS. SHE ASKED IF THERE HAD BEEN ANY UPDATES REGARDING TRANSFER TO ANOTHER FACILITY OR UPDATES FROM [facility] OR [facility] FOR SKILLED NURSING PLACEMENT AFTER SNF. CALL PLACED TO CONY TAPIA AT [facility], SHE REPORTED THAT ASSET REPORT WOULD BE BACK JULY 14 AND [facility] WOULD SEND A LETTER TO PT'S SISTER TO ARRANGE [facility] INTERVIEW. STAFF WENT BACK TO UPDATE PT'S SISTER, SHE HAD LEFT. PT WAS OOB TO THE CHAIR TODAY AND SAT UP UNTIL LUNCH. PT HAS HAD LOW OUTPUT AND FLUIDS HAVE BEEN ENCOURAGED. PT IS INTERMITTENTLY INCONTINENT, CLEAN DRY ATTENDS IN PLACE. PAIN MANAGED WITH 1 NORCO OCCASIONALLY. VSS. WILL MONITOR UNTIL REPORT TO NOC RN.
--- NOTE | 2020-07-09 03:56 | NUR ---
SHIFT SUMMARY POD15 BLE REVASCULARIZATION AND POD14 L TRANSMETATARSAL AMPUATION. L FOOT WITH JOSE MANUEL WRAP. NO ACUTE CHANGES OVERNIGHT. AOX4. COOPERATIVE WITH CARE, INTERMITTENLY WOULD HAVE FLAT AFFECT. USED URINAL AT NIGHT BUT WITH ATTENDS IN PLACED FOR LEAKAGE DUE TO INTERMITTENT INCONTINENT. PT REPORTS PAIN 5/10. PAIN MANAGED WITH NORCO. VSS. WILL CONTINUE TO MONITOR AND WILL PROVIDE REPORT TO ONCOMING NURSE.
--- NOTE | 2020-07-09 15:39 | NUR ---
REPORT SUMMARY PATIENT ALERT AND ORIENTED THROUGHOUT SHIFT. AFFECT IS FLAT AND WITHDRAWN. ANSWERS APPROPRIATELY. TOLERATES REGULAR DIET. L METATARSAL AMPUTATION WITH GAUZE AND JOSE MANUEL WRAP. NWB TO LEFT SIDE. UP TO CHAIR WITH PHYSICAL THERAPY. RATES PAIN 5/10, MEDICATED PER EMAR. PLAN TO DISCHARGE TO SNF. WILL GIVE REPORT TO RN ASSUMING CARE.
--- NOTE | 2020-07-09 16:20 | NUR ---
ASSUMED CARE OF PT, OOB TO RECLINER CHAIR, DENIES ANY PAIN OR ANY DISCOMFORT AT THIS TIME, CONT. TO MONITOR FOR ANY CHANGES.
--- NOTE | 2020-07-09 18:44 | NUR ---
PT EATING DINNER, DENIES ANY PAIN, ASSISTED TO BSC WITH MAX ASSIST AND VERBAL CUEING, NO ACUTE CHANGES THIS SHIFT.
--- NOTE | 2020-07-09 22:38 | NUR ---
ASSUMING CARE REPORT FROM MICHELINE SPRINGER AT THIS TIME. PT RESTING WELL IN BED, EVELYNE, WITH CALL LIGHT IN REACH.
--- NOTE | 2020-07-09 22:38 | NUR ---
END SHIFT NOTES PT AOX4. VSS. PT HAD 1 MED BROWN BOWEL MOVEMENT AT THE BEGINNING OF SHIFT. AMBULATES WITH FWW AND GB. REPORT PAIN 5/10, MEDICATED WITH ULTRAM. PT VOIDING WITHOUT DIFFICULTY, URINAL ON BEDSIDE. ATTENDS IN PLACE FOR INTERMITTENT INCONTINENT/LEAKS. PT IN SLEEPING COMFORTBALE IN BED AT THIS TIME. CALL LIGHT WITHIN REACH. PROVIDE REPORT TO MARLON TOBIAS.
--- NOTE | 2020-07-10 05:49 | NUR ---
shift summary no changes from previous summary pt laying in bed resting, no pain or discmfort reported. call light within reach
--- NOTE | 2020-07-10 18:02 | NUR ---
SHIFT SUMMARY PATIENT ALERT AND ORIENTED THROUGHOUT SHIFT. FLAT AFFECT AND WITHDRAWN. RESPONDS APPROPRIATELY AND COOPERATES WITH CARE. TOLERATING REGULAR DIET AND FLUIDS. 1 PERSON MINIMUM ASSIST WITH FWW TO COMMODE. GAUZE AND JOSE MANUEL WRAP TO LEFT LOWER FOOT. PAIN CONTROLLED WITH PO PAIN MEDS. ATTENDS IN PLACE, CONTINENT OF BOWEL, SOMETIMES CONTINENT OF URINE. WAITING FOR SNF PLACEMENT, POSSIBLY WEDNESDAY 07/12.
--- NOTE | 2020-07-11 04:47 | NUR ---
SHIFT SUMMARY PT RESTED INTERMITTENTLY THIS NOC SHIFT. AAOX4. DISCOMFORT CONTROLLED WITH X2 ULTRAM. NO NAUSEA/EMESIS. JOSE MANUEL WRAP TO LLE C/D/I. DENIES N/T ALL EXTREMITIES. UP TO BSC SBA WITH FWW + GAIT BELT. NO ACUTE CHANGES OVER NIGHT. PT CURRENTLY RESTING WELL IN BED WITH CALL LIGHT IN REACH.
--- NOTE | 2020-07-11 08:10 | NUR ---
meds given as sched pt finishing up his breakfast has good appeatite
--- NOTE | 2020-07-11 12:08 | NUR ---
pt eating lunch sitting in recliner
--- NOTE | 2020-07-11 14:34 | NUR ---
pt back into bed
--- NOTE | 2020-07-12 04:45 | NUR ---
SHIFT SUMMARY PT IS A/O X3-4, REPOSITIONING SELF IN BED. PAIN MANAGED WITH ULTRAM PRN PER EMAR. PT HAS BEEN RESTING IN BED, WATCHING TV T/O THE SHIFT. NO ACUTE CHANGES OVERNIGHT.
--- NOTE | 2020-07-12 17:59 | NUR ---
SUMMARY SLEPT OFF AND ON TODAY, ASSISTED WITH HIS OWN BATH, TOLERATED WELL, PAIN TOLERABLE PER PT, OOB TO CHAIR, STILL AWAITING PLACEMENT, NO ACUTE CHANGES THIS SHIFT.
--- NOTE | 2020-07-13 06:42 | NUR ---
SHIFT SUMMARY LYING IN SEMI FOWLERS WITH EYES CLOSED. AAO X3, JOHNSON, FOLLOWS ALL COMMANDS. HAS RESTED WELL. PLEASANT AND COOPERATIVE WITH CARE. MEDICATED FOR PAIN X1 THIS SHIFT. DENIES FURTHER NEEDS OR WANTS AT THIS TIME. SAFETY MEASURES IN PLACE. WILL CONTINUE TO MONITOR AND GIVE HAND OFF TO ONCOMING SHIFT USING SBAE DURING BEDSIDE REPORT.
--- NOTE | 2020-07-13 17:11 | NUR ---
SUMMARY UP W/ 1 PERSON ASSIST, WB STATUS CHANGED TO HEEL TOUCH, DR. BELLO SAW PT THIS EVENING, REPORTS PAIN IS TOLERABLE WITH TRAMADOL, WAITING FOR PLACEMENT.
--- NOTE | 2020-07-13 17:30 | NUR ---
ASSUMED CARE OF PT FROM JASON Baker RN.
--- NOTE | 2020-07-14 04:21 | NUR ---
SHIFT SUMMARY LYING IN SEMI FOWLERS WITH EYES CLOSED. AAO X3, JOHNSON, FOLLOWS ALL COMMANDS. HAS RESTED WELL. PLEASANT AND COOPERATIVE WITH CARE. MEDICATED FOR PAIN X1 THIS SHIFT. DENIES FURTHER NEEDS OR WANTS AT THIS TIME. IS TO BE D/C'D TO [facility] TODAY AND THEN MAY NEED [facility]. SAFETY MEASURES IN PLACE. WILL CONTINUE TO MONITOR & RESPOND AND GIVE HAND OFF TO ONCOMING SHIFT USING SBAE DURING BEDSIDE REPORT.
--- NOTE | 2020-07-14 15:22 | NUR ---
APS HERE TO SEE PT ABOUT 1400.
--- NOTE | 2020-07-14 16:00 | NUR ---
SHIFT SUMMARY PT HAS BEEN A/O X4 DURING THE DAY. TOLERATING PO INTAKE AND VOIDING USING URINAL. PAIN MANAGED WITH ULTRAM PER EMAR; PT HAS REPORTED PAIN MANAGED WELL TODAY. PT WORKED WITH THERAPY TODAY AND HAS BEEN RESTING IN BED AFTER THERAPY SESSION. PT IS REPOSITIONING SELF IN BED. JOSE MANUEL WRAP TO LLE CDI. PT RESTING AT THIS TIME, CALL LIGHT IN REACH.
--- NOTE | 2020-07-15 06:10 | NUR ---
A/OX4. VSS ON RA. PT/ C/O PAIN, ULTRAM GIVEN W/ GOOD EFFECT. DENIES CP, N/V, AND SOB. SLEEPING B/W CARE.
--- NOTE | 2020-07-15 18:04 | NUR ---
SHIFT SUMMARY PT A&OX4, VSS, PLEASANT AND COOPERATIVE W/ CARE. HAS A SLIGHTLY FLAT AFFECT AND APPEARS SLIGHTLY WITHDRAWN. 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 JOSE MANUEL WRAP TO L FOOT. PT DENIES N/T TO ALL EXTREMITIES. PT HAS BEEN WORKING WITH PT/OT, MOBILITY AND GAIT IS IMPROVING. PT TOLERATING REGULAR/ADA DIET W/ NO COMPLAINTS OF N/V. PT INCONTINENT OF BOTH URINE AND FECES AT TIMES, ENCOURAGED PT TO USE URINAL WHEN NEEDED AND CALL WHEN HE NEEDS TO USE THE BSC. 2 PERSON ASSIST W/ GAIT BELT AND WALKER. ENCOURAGED PT TO ALLOW US TO HELP HIM GET UP AND TRY TO USE THE BSC Q2H. NO ACUTE EVENTS T/O SHIFT. PT RESTING IN CHAIR, BLE ELEVATED. CALL LIGHT WITHIN REACH. WILL CONTINUE TO MONITOR & REPORT TO ONCOMING RN.
--- NOTE | 2020-07-16 04:06 | NUR ---
SHIFT SUMMARY: NO SIGNIFICANT CHANGES THIS SHIFT. PT S/P REVASCULARIZATION AND TRANSMETATARSAL AMPUTATION OF LEFT FOOT. JOSE MANUEL WRAP DRESSING C/D/I. PAIN BEING MANAGED WITH ULTRAM PER EMAR. PT AMBULATING TO BATHROOM WITH 2 MODERATE ASSIST AND FWW+GB. CONTINENT THROUGHOUT SHIFT AND USING CALL LIGHT APPROPRIATLY. AWAITING SNF PLACEMENT.
[2020-07-16 12:29] LABS: SARS-Cov-2 (COVID-19) PCR, MMC NEGATIVE (NEGATIVE)
--- NOTE | 2020-07-16 12:29 | NUR ---
report called to Radha at [facility] where pt will be discharging to today. pt is agreeable to plan for snf transfer
--- NOTE | 2020-07-16 15:12 | NUR ---
1445 PTS SISTER HERE TO VISIT AND POWER OF BUSINESS EXCELLENCE LEADER NOTARIZED. PT REPORTS PAIN IS ADEQUATELY CONTROLLED. LEFT FOOT DRESSING DRY AND INTACT. PT VOIDED THEN ASSISTED TO WHEELCHAIR. DISCHARGED TO BE TRANSPORTED TO [facility] IN [place]. PT IS AGREEABLE TO DISCHARGE PLAN
== END 2020-07-16 14:54 | disposition home or self-care (01) | DRG 270 ==
LOC: ER 17:00 → MEDS 19:09 → PCU 19:09 → MEDS 21:19 → PCU 06-24 19:11 → SURS 06-25 20:57
PROVIDERS: Emergency Medicine; Internal Medicine; Radiology Diagnostic Radiology; ADMIT Family Medicine
PROC: 0Y6N0ZB Detachment at Left Foot, Partial 2nd Ray, Open Approach (ICD-10-PCS; 2020-06-25)
PROC: 0Y6N0ZC Detachment at Left Foot, Partial 3rd Ray, Open Approach (ICD-10-PCS; 2020-06-25)
PROC: 0DJ08ZZ Inspection of Upper Intestinal Tract, Via Natural or Artificial Opening Endoscopic (ICD-10-PCS; 2020-06-25)
PROC: 047K3Z1 Dilation of Right Femoral Artery using Drug-Coated Balloon, Percutaneous Approach (ICD-10-PCS; principal; 2020-06-30)
PROC: 047Q3ZZ Dilation of Left Anterior Tibial Artery, Percutaneous Approach (ICD-10-PCS; 2020-06-30)
PROC: 047N3ZZ Dilation of Left Popliteal Artery, Percutaneous Approach (ICD-10-PCS; 2020-06-30)
PROC: 047U3ZZ Dilation of Left Peroneal Artery, Percutaneous Approach (ICD-10-PCS; 2020-06-30)
PROC: 047W3ZZ Dilation of Left Foot Artery, Percutaneous Approach (ICD-10-PCS; 2020-06-30)
PROC: 04CL3ZZ Extirpation of Matter from Left Femoral Artery, Percutaneous Approach (ICD-10-PCS; 2020-06-30)
PROC: B41D1ZZ Fluoroscopy of Aorta and Bilateral Lower Extremity Arteries using Low Osmolar Contrast (ICD-10-PCS; 2020-06-30)
DX: I70.262 Atherosclerosis of native arteries of extremities with gangrene, left leg (principal); K29.71 Gastritis, unspecified, with bleeding; K29.81 Duodenitis with bleeding; E44.0 Moderate protein-calorie malnutrition; D64.9 Anemia, unspecified; Z20.822 Contact with and (suspected) exposure to COVID-19; R73.9 Hyperglycemia, unspecified; E87.6 Hypokalemia; F10.10 Alcohol abuse, uncomplicated; Z60.2 Problems related to living alone; R79.89 Other specified abnormal findings of blood chemistry; Z68.20 Body mass index [BMI] 20.0-20.9, adult; I10 Essential (primary) hypertension; J44.9 Chronic obstructive pulmonary disease, unspecified; F17.210 Nicotine dependence, cigarettes, uncomplicated; Z98.890 Other specified postprocedural states; Z71.6 Tobacco abuse counseling; Z71.41 Alcohol abuse counseling and surveillance of alcoholic; Z79.899 Other long term (current) drug therapy
CPT/HCPCS: 0241U; 36415; 37225; 37228; 37232; 71045; 73620; 75625; 75716; 75774; 76937; 80048; 80053; 82270; 82947; 83735; 85014; 85018; 85025; 85347; 85610; 85730; 88307; 88311; 93005; 93010; 96365; 96366; 97110; 97116; 97140; 97161; 97530; 99152; 99153; 99284-25; A9270; C1714; C1725; C1760; C1769; C1884; C1887; C1894; C2623; C9113; J0360; J0690; J1100; J1644; J1650; J2250; J2370; J2405; J2543; J2704; J3010; J7030; J7050; J7120; Q9967; U0004

== ENCOUNTER 2021-02-17 16:07 | Emergency (ER) | payer OTHER ==
[~2021-02-17] VITALS: Ht 167.6 cm; Wt 77.1 kg
[2021-02-17 17:24] LABS: BASOPHILS ABSOLUTE AUTO 0.05 K/mm3 (0.00-0.23); BASOPHILS PERCENT AUTO 1 % (0-2); EOSINOPHILS ABSOLUTE AUTO 0.25 K/mm3 (0.00-0.68); EOSINOPHILS PERCENT AUTO 4 % (0-6); Hematocrit 36.8 % (37.0-53.0); Hemoglobin 12.4 g/dL (13.5-17.5); IMMATURE GRAN ABSOLUTE AUTO 0.02 K/mm3 (0.00-0.10); IMMATURE GRAN PERCENT AUTO 0 % (0-1); LYMPHOCYTES ABSOLUTE AUTO 1.15 K/mm3 (0.84-5.20); LYMPHOCYTES PERCENT AUTO 17 % (21-46); MONOCYTES ABSOLUTE AUTO 0.95 K/mm3 (0.16-1.47); MONOCYTES PERCENT AUTO 14 % (4-13); Mean Corpuscular HGB 29.1 pg (26.0-34.0); Mean Corpuscular HGB Conc 33.7 g/dL (31.5-36.5); Mean Corpuscular Volume 86 fL (80-100); Mean Platelet Volume 9.6 fL (9.1-12.4); NEUTROPHILS ABSOLUTE AUTO 4.54 K/mm3 (1.96-9.15); NEUTROPHILS PERCENT AUTO 65 % (41-73); Platelet Count 421 K/mm3 (150-400); RDW Coefficient Variation 14.2 % (11.7-14.2); RDW Standard Deviation 44.4 fL (35.1-46.3); Red Blood Cell Count 4.26 M/mm3 (4.30-5.90); White Blood Cell Count 6.96 K/mm3 (4.00-11.30)
[2021-02-17 17:45] LABS: Alanine Aminotransfer (ALT/SGP 37 U/L (12-78); Albumin/Globulin Ratio 1.1 (0.8-1.8); Alk Phos 92 U/L (50-136); Anion Gap 7 mmol/L (6-16); Aspartate Aminotrans (AST/SGOT 26 U/L (12-37); Bilirubin, Total 0.2 mg/dL (0.1-1.0); Blood Urea Nitrogen 19 mg/dL (8-24); CO2, Blood 23 mmol/L (21-32); Calcium, Blood 9.5 mg/dL (8.5-10.1); Chloride, Blood 105 mmol/L (98-108); Globulin, Blood 3.6 g/dL (2.2-4.0); Glomerular Filtration Rate >60 (60-); Glucose, Blood 136 mg/dL (70-99); Potassium, Blood 4.4 mmol/L (3.5-5.5); Sodium, Blood 135 mmol/L (136-145); Total Protein, Blood 7.6 g/dL (6.4-8.2)
[2021-02-17 22:03] LABS: CPK Creatine Kinase 77 U/L (39-308)
[2021-02-17] MEDS ORDERED: XARELTO2.5 M1 PO (23:32)
== END 2021-02-18 00:19 | disposition home or self-care (01) ==
LOC: ER 16:07
PROVIDERS: Physician Assistant
DX: I73.9 Peripheral vascular disease, unspecified (principal); Z87.891 Personal history of nicotine dependence
CPT/HCPCS: 36415; 80053; 82550; 83605; 85025; 93926; 99284-25

== ENCOUNTER 2021-03-24 08:15 | Day surgery (SDC) | payer OTHER ==
[~2021-03-24] VITALS: Ht 167.6 cm; Wt 72.0 kg
[~2021-03-24 08:15] MED LIST changes: +XARELTO2.5 M1 PO
[2021-03-24] MEDS ORDERED: ACET500 PO (08:56)
[2021-03-24] MEDS ORDERED: AMLO10 PO (08:56)
[2021-03-24] MEDS ORDERED: Aspir 8181 MG PO (08:56)
[2021-03-24] MEDS ORDERED: ATOR80 PO (08:57)
[2021-03-24] MEDS ORDERED: CLOP75 PO (08:57)
[2021-03-24] MEDS ORDERED: FURO40 PO (08:57)
[2021-03-24] MEDS ORDERED: MULVITA PO (08:58)
[2021-03-24] MEDS ORDERED: Prinivil10 MG PO (08:58)
[2021-03-24] MEDS ORDERED: OXYC5 PO (08:58)
[2021-03-24] MEDS ORDERED: PANT40 PO (08:59)
[2021-03-24] MEDS ORDERED: POTA10T PO (09:01)
[2021-03-24] MEDS ORDERED: TRAM50 PO (09:02)
[2021-03-24] MEDS ORDERED: XARELTO2.5 MG PO (09:02)
[2021-03-24 11:05] LABS: Hematocrit 34.8 % (37.0-53.0); Hemoglobin 11.3 g/dL (13.5-17.5); Mean Corpuscular HGB 28.7 pg (26.0-34.0); Mean Corpuscular HGB Conc 32.5 g/dL (31.5-36.5); Mean Corpuscular Volume 88 fL (80-100); Mean Platelet Volume 9.8 fL (9.1-12.4); Platelet Count 343 K/mm3 (150-400); RDW Standard Deviation 48.4 fL (35.1-46.3); Red Blood Cell Count 3.94 M/mm3 (4.30-5.90); White Blood Cell Count 7.36 K/mm3 (4.00-11.30)
[2021-03-24 11:17] LABS: Anion Gap 7 mmol/L (6-16); Blood Urea Nitrogen 31 mg/dL (8-24); Bun/Creatinine Ratio 27.7 (12.0-20.0); CO2, Blood 22 mmol/L (21-32); Calcium, Blood 9.3 mg/dL (8.5-10.1); Chloride, Blood 107 mmol/L (98-108); Creatinine, Blood 1.12 mg/dL (0.60-1.20); Glomerular Filtration Rate >60 (60-); Glucose, Blood 111 mg/dL (70-99); Potassium, Blood 4.6 mmol/L (3.5-5.5); Sodium, Blood 136 mmol/L (136-145)
[2021-03-24 11:30] LABS: International Normalized Ratio 1.3; Prothrombin Time Results 13.4 Sec (9.7-11.5)
--- NOTE | 2021-03-24 15:05 | NUR ---
ASSUMED CARE OF PT. PT DROWSY, BUT EASILY ROUSABLE, CONVERSING APPROPRIATELY; DENIES PAIN POST PROCEDURE. MONITOR SR 70'S, B/P 116/71, AFEBRILE, SPO2 97% RA. L GROIN NO SWELLING/HEMATOMA, TEGADERM DRSG INTACT; ANGIO SEAL DEPLOYED LLE PULES DP ABS, PT DOP, RLE PULSES 2+ X 2 POST INTERVENTION.
--- NOTE | 2021-03-24 16:35 | NUR ---
PT'S HOB ELEVATED, SITE REMAINS UNCHANGED. PT EATING LUNCH WITHOUT ISSUE.
--- NOTE | 2021-03-24 17:10 | NUR ---
PT STOOD AT EDGE OF BED, SITE UNCHANGED WITH ACTIVITY.
--- NOTE | 2021-03-24 17:20 | NUR ---
PT DRESSED WITH ASSISTNACE, SITE UNCHANGED; IV REMOVED-CANNULA INTACT. REPORT CALLED TO MICHELNIE ANSARI AT [facility].
--- NOTE | 2021-03-24 17:28 | NUR ---
PT RECEIVED DISCHARE INSTRUCTIONS, MED LIST AND AFTER CARE INSTRUCTIONS; VERBALIZED GOOD UNDERSTANDING.
--- NOTE | 2021-03-24 17:45 | NUR ---
PT'S RETURN TRIP ARRANGED WITH [facility], WILL PICK PT UP IN ER LOBBY.
--- NOTE | 2021-03-24 18:20 | NUR ---
PT TO ER LOBBY VIA W/C TO WAIT FOR TRANSPORT COMPANY, CONDITION STABLE.
== END 2021-03-24 18:20 | disposition home or self-care (01) ==
LOC: MHTC 08:15
PROVIDERS: Internal Medicine
DX: I70.213 Atherosclerosis of native arteries of extremities with intermittent claudication, bilateral legs (principal); I70.229 Atherosclerosis of native arteries of extremities with rest pain, unspecified extremity; I10 Essential (primary) hypertension; Z79.899 Other long term (current) drug therapy
CPT/HCPCS: 76937; 80048; 85027; 85347; 85610; 99152; 99153; C1725; C1753; C1760; C1769; C1874; C1887; C1894; C2623; J1644; J2250; J3010; J7030; J7050; Q9967

== ENCOUNTER 2021-12-13 01:56 | Emergency (ER) | payer OTHER ==
[~2021-12-13] VITALS: Ht 167.6 cm; Wt 72.6 kg
[~2021-12-13 01:56] MED LIST changes: +ACET500 PO; +AMLO10 PO; +ATOR80 PO; +Aspir 8181 MG PO; +CLOP75 PO; +FURO40 PO; +MULVITA PO; +OXYC5 PO; +PANT40 PO; +POTA10T PO; +TRAM50 PO; +XARELTO2.5 MG PO
[2021-12-13 03:33] LABS: BASOPHILS ABSOLUTE AUTO 0.06 K/mm3 (0.00-0.23); BASOPHILS PERCENT AUTO 1 % (0-2); EOSINOPHILS ABSOLUTE AUTO 0.18 K/mm3 (0.00-0.68); EOSINOPHILS PERCENT AUTO 2 % (0-6); Hematocrit 27.5 % (37.0-53.0); Hemoglobin 8.7 g/dL (13.5-17.5); IMMATURE GRAN ABSOLUTE AUTO 0.02 K/mm3 (0.00-0.10); IMMATURE GRAN PERCENT AUTO 0 % (0-1); LYMPHOCYTES ABSOLUTE AUTO 1.68 K/mm3 (0.84-5.20); LYMPHOCYTES PERCENT AUTO 21 % (21-46); MONOCYTES ABSOLUTE AUTO 1.03 K/mm3 (0.16-1.47); MONOCYTES PERCENT AUTO 13 % (4-13); Mean Corpuscular HGB 26.4 pg (26.0-34.0); Mean Corpuscular HGB Conc 31.6 g/dL (31.5-36.5); Mean Corpuscular Volume 83 fL (80-100); Mean Platelet Volume 10.1 fL (9.1-12.4); NEUTROPHILS ABSOLUTE AUTO 5.04 K/mm3 (1.96-9.15); NEUTROPHILS PERCENT AUTO 63 % (41-73); Platelet Count 458 K/mm3 (150-400); RDW Coefficient Variation 14.3 % (11.7-14.2); RDW Standard Deviation 43.6 fL (35.1-46.3); White Blood Cell Count 8.01 K/mm3 (4.00-11.30)
[2021-12-13 04:04] LABS: Albumin, Blood 3.3 g/dL (3.4-5.0); Albumin/Globulin Ratio 0.9 (0.8-1.8); Bilirubin, Total 0.3 mg/dL (0.1-1.0); Bun/Creatinine Ratio 31.1 (12.0-20.0); Calcium, Blood 8.9 mg/dL (8.5-10.1); Creatinine, Blood 1.35 mg/dL (0.60-1.20); Globulin, Blood 3.7 g/dL (2.2-4.0); Potassium, Blood 2.9 mmol/L (3.5-5.5)
== END 2021-12-13 10:27 | disposition home or self-care (01) ==
LOC: ER 01:56
PROVIDERS: Student in an Organized Health Care Education/Training Program
DX: R06.00 Dyspnea, unspecified (principal); R09.89 Other specified symptoms and signs involving the circulatory and respiratory systems; Z79.899 Other long term (current) drug therapy; Z87.891 Personal history of nicotine dependence
CPT/HCPCS: 71045; 80053; 84484; 85025; 93005; 93010; 94644; 94664; 96365; 96366; 96375; 99284-25; A9270; J2930; J3480

== ENCOUNTER 2021-12-13 19:55 | Emergency (ER) | payer OTHER ==
[~2021-12-13] VITALS: Ht 167.6 cm; Wt 72.6 kg
== END 2021-12-13 22:39 | disposition home or self-care (01) ==
LOC: ER 19:55
DX: J04.0 Acute laryngitis (principal); Z79.899 Other long term (current) drug therapy; Z87.891 Personal history of nicotine dependence
CPT/HCPCS: A9270; J1100

== ENCOUNTER 2022-02-21 19:27 | Observation (INO) | payer OTHER ==
[~2022-02-21] VITALS: Ht 172.7 cm; Wt 67.1 kg
[2022-02-21 20:09] LABS: BASOPHILS ABSOLUTE AUTO 0.05 K/mm3 (0.00-0.23); BASOPHILS PERCENT AUTO 1 % (0-2); EOSINOPHILS ABSOLUTE AUTO 0.14 K/mm3 (0.00-0.68); EOSINOPHILS PERCENT AUTO 2 % (0-6); Hematocrit 22.7 % (37.0-53.0); IMMATURE GRAN ABSOLUTE AUTO 0.04 K/mm3 (0.00-0.10); IMMATURE GRAN PERCENT AUTO 1 % (0-1); LYMPHOCYTES PERCENT AUTO 15 % (21-46); MONOCYTES ABSOLUTE AUTO 0.86 K/mm3 (0.16-1.47); MONOCYTES PERCENT AUTO 12 % (4-13); Mean Corpuscular HGB 24.4 pg (26.0-34.0); Mean Corpuscular HGB Conc 30.8 g/dL (31.5-36.5); Mean Corpuscular Volume 79 fL (80-100); Mean Platelet Volume 9.8 fL (9.1-12.4); NEUTROPHILS ABSOLUTE AUTO 5.04 K/mm3 (1.96-9.15); NEUTROPHILS PERCENT AUTO 70 % (41-73); NRBC ABSOLUTE 0.06 K/mm3 (0.00-0.02); NRBC Auto 0.8 /100 WBC (0.0-0.2); Platelet Count 326 K/mm3 (150-400); RDW Coefficient Variation 17.3 % (11.7-14.2); Red Blood Cell Count 2.87 M/mm3 (4.30-5.90); White Blood Cell Count 7.23 K/mm3 (4.00-11.30)
[2022-02-21 20:30] LABS: Albumin, Blood 2.6 g/dL (3.4-5.0); Albumin/Globulin Ratio 0.7 (0.8-1.8); Bilirubin, Total 0.3 mg/dL (0.1-1.0); Bun/Creatinine Ratio 16.7 (12.0-20.0); Calcium, Blood 7.9 mg/dL (8.5-10.1); Creatinine, Blood 1.2 mg/dL (0.60-1.20); Globulin, Blood 3.8 g/dL (2.2-4.0); Potassium, Blood 2.7 mmol/L (3.5-5.5); Total Protein, Blood 6.4 g/dL (6.4-8.2)
[2022-02-22 00:20] LABS: Magnesium, Blood 1.7 mg/dL (1.6-2.4)
[2022-02-22 04:54] LABS: BASOPHILS ABSOLUTE AUTO 0.04 K/mm3 (0.00-0.23); BASOPHILS PERCENT AUTO 1 % (0-2); EOSINOPHILS ABSOLUTE AUTO 0.08 K/mm3 (0.00-0.68); EOSINOPHILS PERCENT AUTO 1 % (0-6); Hematocrit 21.3 % (37.0-53.0); Hemoglobin 6.5 g/dL (13.5-17.5); IMMATURE GRAN ABSOLUTE AUTO 0.02 K/mm3 (0.00-0.10); IMMATURE GRAN PERCENT AUTO 0 % (0-1); LYMPHOCYTES ABSOLUTE AUTO 1.05 K/mm3 (0.84-5.20); LYMPHOCYTES PERCENT AUTO 16 % (21-46); MONOCYTES ABSOLUTE AUTO 0.74 K/mm3 (0.16-1.47); MONOCYTES PERCENT AUTO 11 % (4-13); Mean Corpuscular HGB Conc 30.5 g/dL (31.5-36.5); Mean Corpuscular Volume 79 fL (80-100); NEUTROPHILS ABSOLUTE AUTO 4.69 K/mm3 (1.96-9.15); NEUTROPHILS PERCENT AUTO 71 % (41-73); NRBC ABSOLUTE 0.06 K/mm3 (0.00-0.02); NRBC Auto 0.9 /100 WBC (0.0-0.2); Platelet Count 321 K/mm3 (150-400); RDW Coefficient Variation 17.2 % (11.7-14.2); Red Blood Cell Count 2.71 M/mm3 (4.30-5.90); White Blood Cell Count 6.62 K/mm3 (4.00-11.30)
[2022-02-22 05:13] LABS: Albumin, Blood 2.3 g/dL (3.4-5.0); Albumin/Globulin Ratio 0.7 (0.8-1.8); Bilirubin, Total 0.3 mg/dL (0.1-1.0); Bun/Creatinine Ratio 18.7 (12.0-20.0); Calcium, Blood 7.5 mg/dL (8.5-10.1); Creatinine, Blood 0.97 mg/dL (0.60-1.20); Globulin, Blood 3.4 g/dL (2.2-4.0); Potassium, Blood 3.8 mmol/L (3.5-5.5); Total Protein, Blood 5.7 g/dL (6.4-8.2)
[2022-02-22 10:29] LABS: Hemoglobin 7.8 g/dL (13.5-17.5)
[2022-02-22] MEDS ORDERED: MELO7.5 PO (12:07)
[2022-02-22] MEDS ORDERED: FLUO10 PO (12:07)
[2022-02-22] MEDS ORDERED: METO2.5 PO (12:07)
[2022-02-22 13:13] LABS: Hematocrit 24.4 % (37.0-53.0); Hemoglobin 7.7 g/dL (13.5-17.5)
--- NOTE | 2022-02-22 17:45 | NUR ---
Pt [facility], a bit sedated, somnulent, but arousable to voice. Having some pain in the left leg, repositioning himself to relieve it. Distal pulses bilaterally are palpable, and toes of right foot are dark pink, as is the foot stump on the left leg. Angioseal per report at bedside from Mar[facility]. Right groin site tegederm has small amount of dried blood underneath it, and some residual dried blood noted in the right groin site. No active bleeding, and no evidence of hematoma. Pt states that he is having cramps in his left leg. Given clear liquids. HOB elevated 30 degrees. IV thiamine infusing at this time. Vital signs are stable.
[2022-02-22 20:34] LABS: Hematocrit 23.3 % (37.0-53.0); Hemoglobin 7.4 g/dL (13.5-17.5)
[2022-02-23 01:54] LABS: Hematocrit 24.7 % (37.0-53.0); Hemoglobin 7.8 g/dL (13.5-17.5); Mean Corpuscular HGB 25.9 pg (26.0-34.0); Mean Corpuscular HGB Conc 31.6 g/dL (31.5-36.5); Mean Corpuscular Volume 82 fL (80-100); Mean Platelet Volume 9.8 fL (9.1-12.4); NRBC ABSOLUTE 0.07 K/mm3 (0.00-0.02); NRBC Auto 0.9 /100 WBC (0.0-0.2); Platelet Count 280 K/mm3 (150-400); RDW Coefficient Variation 18.5 % (11.7-14.2); RDW Standard Deviation 53.9 fL (35.1-46.3); Red Blood Cell Count 3.01 M/mm3 (4.30-5.90); White Blood Cell Count 7.38 K/mm3 (4.00-11.30)
[2022-02-23 02:15] LABS: Bun/Creatinine Ratio 13.2 (12.0-20.0); Calcium, Blood 7.6 mg/dL (8.5-10.1); Creatinine, Blood 0.83 mg/dL (0.60-1.20); Potassium, Blood 3.3 mmol/L (3.5-5.5)
--- NOTE | 2022-02-23 04:53 | NUR ---
SHIFT SUMMARY PT A&0X4, MOVES IND IN BED, USES THE URINAL, HAS BEEN SR 70'S-90'S ON TELE, AND SP02 IS >90% ON ROOM AIR. PT HAS C/O LEFT LEG PAIN T/O THE SHIFT, AND WHEN HE IS MEDICATED W/ HID PAIN MEDICATIONS HIS BP BECOMES SOFTER. HIS BP IS ALREADY SOFT. A KPAD WAS SET UP TO HELP WITH THE PAIN. THE PT USED THE URINAL AT [facility]EDISDE BUT HE HAD ONE EPISODE OF INC. PT HAS DENIED SOB, ANGINA, AND N/V/D. HE RIGHT GROIN SITE FROM REVASC IS WNL W/O HEMATOMA AND BLEEDING. BED IS IN LOW, BED ALARM IS ON, THREE SIDE RAILS ARE UP, AND CALL LIGHT IS IN REACH. WILL CONTINUE TO MONITOR UNTIL SHIFT REPORT IS GIVEN TO THE ONCOMING SHIFT RN. SEE NOTES FOR ANY UPDATES.
--- NOTE | 2022-02-23 07:44 | NUR ---
pt lying in bed this morning, eyes open. He is minimally conversant of his own accord. Quiet, no restlessness/agitation nor anxiety noted. Self repositioning in the bed to relieve discomfort in left leg. Answers questions appropriately, and is alert and oriented. Affect is withdrawn, appears apathetic. Found to have had urinary incontinence, possibly with use of urinal which was on the bedside table with small amount of urine in it. He states that he uses [facility] Total bed bath given. Pt did his own hair and oral care. He states that he is having less pain in the left leg, stinging and burning 7/10, slightly less than 8/10 which he had before the Tramadol administration 2 hours ago.
[2022-02-23 09:55] LABS: Hematocrit 25.5 % (37.0-53.0)
[2022-02-23 10:17] LABS: Percent Saturation 20.6 % (20.0-50.0)
--- NOTE | 2022-02-23 11:19 | NUR ---
States that the pain in his left leg is mild, intermittent now. Requesting vanilla pudding.
[2022-02-23] MEDS ORDERED: FERSU300 PO (11:56)
--- NOTE | 2022-02-23 12:12 | NUR ---
Rema TOBIAS called to give her report before the patient is transferred back home. MICHELINE Musa confirms that the pt gets on his powerscooter and goes to the store to buy alcohol. She confirmed that the pt drinks a quart of vodka and 6 cans of beer, at least, per day. Transport home is arranged for 5:30 pm.
--- NOTE | 2022-02-23 13:49 | NUR ---
Pt. is awake in bed and welcomes my visit. Pt. is quiet but warms to the visit after introductions. Pt. displays evidence of being very withdrawn and responds only very short answers. Through theraputic listening and a calming presence rapport is established. Prayed with Pt. Pt. verbalized gratitude for the spiritual care visit.
--- NOTE | 2022-02-23 16:26 | NUR ---
IVs right wrist and left forearm were removed. Sites WNL, catheter tip undamaged and intact. Pt was assisted to get dressed and collect his belongings. Discharge instructions were reviewed with the patient. Report was called to Festus TOBIAS earlier. Wheelchair transport arrived and pt transferred to wheelchair with minimal assistance required. discharged from PCU 7.
== END 2022-02-23 16:26 | disposition home or self-care (01) ==
LOC: ER 19:27 → ERHOLD 19:28 → PCU 19:28 → ERHOLD 02-22 00:18 → ER 02-22 00:18 → MEDS 02-22 14:44 → PCU 02-22 15:52
PROVIDERS: Family Medicine; Internal Medicine; Student in an Organized Health Care Education/Training Program; ADMIT Internal Medicine
DX: D50.9 Iron deficiency anemia, unspecified (principal); I10 Essential (primary) hypertension; I73.9 Peripheral vascular disease, unspecified; E87.6 Hypokalemia
CPT/HCPCS: 36415; 36430; 37221; 73630; 75625; 75716; 75774; 76937; 80048; 80053; 82728; 83540; 83550; 83735; 83880; 85014; 85018; 85025; 85027; 86850; 86900; 86901; 86923; 90686; 93926; 96365; 96366; 96367; 96375; 96376; 99152; 99153; 99285-25; A9270; C1725; C1760; C1769; C1876; C1887; C1894; C2623; C9113; C9764; G0378; J1644; J2250; J3010; J3411; J3475; J3480; J7030; J7050; P9016; Q9967

== ENCOUNTER 2022-03-12 11:43 | Emergency (ER) | payer OTHER ==
[~2022-03-12] VITALS: Ht 167.6 cm; Wt 68.0 kg
[~2022-03-12 11:43] MED LIST changes: +FERSU300 PO; +FLUO10 PO; +MELO7.5 PO; +METO2.5 PO
[2022-03-12] MEDS ORDERED: CEPH500 PO (12:48)
== END 2022-03-12 13:41 | disposition home or self-care (01) ==
LOC: ER 11:43
DX: L03.116 Cellulitis of left lower limb (principal); I10 Essential (primary) hypertension; Z87.891 Personal history of nicotine dependence
CPT/HCPCS: 99283

== ENCOUNTER 2022-05-22 19:27 | Emergency (ER) | payer OTHER ==
[~2022-05-22] VITALS: Ht 167.6 cm; Wt 56.7 kg
[~2022-05-22 19:27] MED LIST changes: +CEPH500 PO; +CODACE30 PO
[2022-05-22] MEDS ORDERED: MELATONIN5 M1 PO (21:48)
[2022-05-22] MEDS ORDERED: FURO40 PO (21:48)
[2022-05-22] MEDS ORDERED: POTA10T PO (21:49)
== END 2022-05-22 23:30 | disposition home or self-care (01) ==
LOC: ER 19:27
DX: R60.0 Localized edema (principal); I10 Essential (primary) hypertension; E87.5 Hyperkalemia; Z79.899 Other long term (current) drug therapy; Z87.891 Personal history of nicotine dependence
CPT/HCPCS: 93971

== ENCOUNTER 2022-06-10 18:33 | Observation (INO) | payer OTHER ==
[~2022-06-10] VITALS: Ht 167.6 cm; Wt 65.6 kg
[~2022-06-10 18:33] MED LIST changes: -ATOR80 PO; +LIPITOR80 MG PO; +MELATONIN5 M1 PO; +PANT20 PO; -PANT40 PO
[2022-06-10 19:49] LABS: BASOPHILS ABSOLUTE AUTO 0.05 K/mm3 (0.00-0.23); BASOPHILS PERCENT AUTO 1 % (0-2); EOSINOPHILS ABSOLUTE AUTO 0.16 K/mm3 (0.00-0.68); EOSINOPHILS PERCENT AUTO 2 % (0-6); Hematocrit 20.5 % (37.0-53.0); IMMATURE GRAN ABSOLUTE AUTO 0.03 K/mm3 (0.00-0.10); IMMATURE GRAN PERCENT AUTO 0 % (0-1); LYMPHOCYTES ABSOLUTE AUTO 1.24 K/mm3 (0.84-5.20); LYMPHOCYTES PERCENT AUTO 14 % (21-46); MONOCYTES ABSOLUTE AUTO 1.21 K/mm3 (0.16-1.47); MONOCYTES PERCENT AUTO 14 % (4-13); Mean Corpuscular HGB 25.6 pg (26.0-34.0); Mean Corpuscular HGB Conc 27.8 g/dL (31.5-36.5); Mean Corpuscular Volume 92 fL (80-100); Mean Platelet Volume 10.8 fL (9.1-12.4); NEUTROPHILS ABSOLUTE AUTO 6.01 K/mm3 (1.96-9.15); NEUTROPHILS PERCENT AUTO 69 % (41-73); NRBC ABSOLUTE 0.08 K/mm3 (0.00-0.02); NRBC Auto 0.9 /100 WBC (0.0-0.2); Platelet Count 655 K/mm3 (150-400); RDW Coefficient Variation 17.4 % (11.7-14.2); RDW Standard Deviation 58.3 fL (35.1-46.3); Red Blood Cell Count 2.23 M/mm3 (4.30-5.90)
[2022-06-10 19:53] LABS: Hemoglobin 5.7 g/dL (13.5-17.5)
[2022-06-10 20:00] LABS: Base Excess Venous -3.4 mmol/L; Bicarbonate Venous 21.8 mmol/L (24.0-30.0); PCO2 Venous 29.4 mmHg (38-42); pH Blood Venous 7.45 (7.34-7.37)
[2022-06-10 20:08] LABS: Alanine Aminotransfer (ALT/SGP 21 U/L (12-78); Albumin/Globulin Ratio 0.8 (0.8-1.8); Alk Phos 131 U/L (50-136); Anion Gap 5 mmol/L (6-16); Aspartate Aminotrans (AST/SGOT 20 U/L (12-37); Bilirubin, Total 0.3 mg/dL (0.1-1.0); Blood Urea Nitrogen 15 mg/dL (8-24); Bun/Creatinine Ratio 17.9 (12.0-20.0); CO2, Blood 22 mmol/L (21-32); Calcium, Blood 8.5 mg/dL (8.5-10.1); Chloride, Blood 114 mmol/L (98-108); Creatinine, Blood 0.84 mg/dL (0.60-1.20); Globulin, Blood 3.9 g/dL (2.2-4.0); Glomerular Filtration Rate 94 (60-); Glucose, Blood 175 mg/dL (70-99); Potassium, Blood 3.7 mmol/L (3.5-5.5); Sodium, Blood 141 mmol/L (136-145); Total Protein, Blood 6.9 g/dL (6.4-8.2)
[2022-06-10 20:50] LABS: Ethanol (Alcohol), Blood, Med <3 mg/dL
[2022-06-10 20:56] LABS: Influenza A, PCR NEGATIVE (NEGATIVE); Influenza B, PCR NEGATIVE (NEGATIVE); Resp Syncytial Virus, PCR NEGATIVE (NEGATIVE); SARS-Cov-2 (COVID-19) PCR, MMC NEGATIVE (NEGATIVE)
[2022-06-10 21:41] LABS: Iron Serum 14 ug/dL (65-175); Total Iron Binding Capacity 460 ug/dL (250-450)
[2022-06-10 21:59] LABS: Ferritin, Serum 10 ng/mL (26-388)
[2022-06-10 22:32] VITALS: BP 145/92
--- NOTE | 2022-06-10 23:00 | NUR ---
ARRIVAL TO [facility]9 PT ARRIVED TO PCU AT APPROXIMATELY 2220. AK SLID OVER FROM ER GURNEY TO HOSPITAL BED BY 3 CLINICAL STAFF MEMEBERS. PT A&Ox4, COMMUNICATES NEEDS APPROPRIATELY, ORIENTED PT TO CALL LIGHT/UNIT. BP STABLE, SR-ST 80-100's, DENIES CP/PRESSURE. SpO2> 92% RA, REPORTS MILD SOB AT TIMES. PT REPORTS USING WHEELCHAIR AT BASELINE AND IS ABLE TO STAND/PIVOT IND TO AND FROM WHEELCHAIR. ATTENDS WERE CLEAN UPON ARRIVAL, NO S/S OF BLEEDING. BED IN LOWEST POSITION, CALL LIGHT IN REACH.
[2022-06-10 23:04] VITALS: BP 119/78
[2022-06-10 23:24] VITALS: BP 118/48
[2022-06-11] VITALS (12 sets, daily range): BP systolic 118–167; BP diastolic 58–100
--- NOTE | 2022-06-11 06:47 | NUR ---
SHIFT SUMMARY PT A&Ox4, CALLS AND COMMUNICATES NEEDS APPROPRIATELY, IS SOMEWHAT WHITHDRAWN. BP STABLE, SR 80-90's, DENIES CP/PRESSURE. SpO2> 92% RA, REPORTS MILD SOB AT TIMES. PT UNABLE TO VOID RESULTING IN NEEDING TO BE STRAIGHT CATHED. ATTENDS CLEAN, NO S/S OF BLEEDING. PT RECIEVED A TOTAL OF 2 UNITS OF BLOOD. NO OTHER EVENTS, WILL REPORT TO ONCOMING RN.
[2022-06-11 07:27] LABS: Hematocrit 26.7 % (37.0-53.0); Hemoglobin 8.2 g/dL (13.5-17.5); Mean Corpuscular HGB 27.1 pg (26.0-34.0); Mean Corpuscular HGB Conc 30.7 g/dL (31.5-36.5); Mean Corpuscular Volume 88 fL (80-100); Mean Platelet Volume 10.5 fL (9.1-12.4); NRBC ABSOLUTE 0.07 K/mm3 (0.00-0.02); NRBC Auto 0.6 /100 WBC (0.0-0.2); Platelet Count 616 K/mm3 (150-400); RDW Coefficient Variation 16.6 % (11.7-14.2); RDW Standard Deviation 53.7 fL (35.1-46.3); Red Blood Cell Count 3.03 M/mm3 (4.30-5.90); White Blood Cell Count 11.28 K/mm3 (4.00-11.30)
[2022-06-11 07:36] LABS: Bun/Creatinine Ratio 18.8 (12.0-20.0); Calcium, Blood 8.5 mg/dL (8.5-10.1); Creatinine, Blood 0.69 mg/dL (0.60-1.20); Potassium, Blood 3.4 mmol/L (3.5-5.5)
--- NOTE | 2022-06-11 17:32 | NUR ---
SHIFT SUMMARY; ASSUMED CARE AT 0700. INDEPENDANT WITH REPOSITIONING IN BED, MINIMAL ASSIST TO BEDSIDE COMMODE, A/A/OX3. FLAT AFFECT WITH MINIMAL MOTIVATION, COOPERATIVE WITH CARE. UNABLE TO URINATE DURING SHIFT, BLADDER SCAN X2, STRAIGHT CATH IN AFTERNOON WITH 680 OUT. DENIES HX OF URINARY RETENTION. NS INFUSING AT 75ML/HR, NO ACUTE CHANGES DURING SHIFT, VSS, WILL CONTINUE TO MONITOR AND TREAT UNTIL CHANGE OF SHIFT.
[2022-06-12 03:24] VITALS: BP 166/81
--- NOTE | 2022-06-12 04:19 | NUR ---
SHIFT SUMMARY PT A&Ox4, CALLS AND COMMUNICATES NEEDS APPROPRIATELY, IS SOMEWHAT WHITHDRAWN. BP STABLE, SR 80-90's, DENIES CP/PRESSURE. SpO2> 92% RA, REPORTS MILD SOB AT TIMES. PT UNABLE TO FULLY EMPTY BLADDER RESULTING IN NEEDING TO BE STRAIGHT CATHED, PT WAS ABLE TO VOID 100mLs TWICE. PT WITH ONE EPISODE OF LOOSE, BLACK STOOL THIS SHIFT. NO OTHER EVENTS, WILL REPORT TO ONCOMING RN.
[2022-06-12 05:18] VITALS: BP 135/65
[2022-06-12 06:12] LABS: BASOPHILS ABSOLUTE AUTO 0.08 K/mm3 (0.00-0.23); BASOPHILS PERCENT AUTO 1 % (0-2); EOSINOPHILS ABSOLUTE AUTO 0.23 K/mm3 (0.00-0.68); EOSINOPHILS PERCENT AUTO 2 % (0-6); Hemoglobin 9.4 g/dL (13.5-17.5); IMMATURE GRAN ABSOLUTE AUTO 0.05 K/mm3 (0.00-0.10); IMMATURE GRAN PERCENT AUTO 1 % (0-1); LYMPHOCYTES ABSOLUTE AUTO 1.21 K/mm3 (0.84-5.20); LYMPHOCYTES PERCENT AUTO 11 % (21-46); MONOCYTES ABSOLUTE AUTO 1.26 K/mm3 (0.16-1.47); MONOCYTES PERCENT AUTO 12 % (4-13); Mean Corpuscular HGB 27.6 pg (26.0-34.0); Mean Corpuscular HGB Conc 31.3 g/dL (31.5-36.5); Mean Corpuscular Volume 88 fL (80-100); Mean Platelet Volume 10.1 fL (9.1-12.4); NEUTROPHILS ABSOLUTE AUTO 7.79 K/mm3 (1.96-9.15); NEUTROPHILS PERCENT AUTO 73 % (41-73); NRBC ABSOLUTE 0.06 K/mm3 (0.00-0.02); NRBC Auto 0.6 /100 WBC (0.0-0.2); Platelet Count 696 K/mm3 (150-400); RDW Coefficient Variation 16.6 % (11.7-14.2); RDW Standard Deviation 53.3 fL (35.1-46.3); Red Blood Cell Count 3.41 M/mm3 (4.30-5.90); White Blood Cell Count 10.62 K/mm3 (4.00-11.30)
[2022-06-12 06:14] LABS: Source, Urine Foley catheter
[2022-06-12 06:17] LABS: Appearance, Urine Clear (Clear); Bilirubin, Urine Neg (Neg); Blood, Urine Neg (Neg); Color, Urine Yellow (P-Yellow); Glucose Qualitative, Urine Neg (Neg); Ketones, Urine Neg (Neg); Leukocyte Esterase, Urine Neg (Neg); Nitrite, Urine Neg (Neg); Protein, Urine Neg (Neg); Urobilinogen, Urine NORM (Normal)
[2022-06-12 06:29] LABS: Bun/Creatinine Ratio 9.4 (12.0-20.0); Calcium, Blood 8.8 mg/dL (8.5-10.1); Creatinine, Blood 0.64 mg/dL (0.60-1.20); Potassium, Blood 3.4 mmol/L (3.5-5.5)
[2022-06-12 07:33] VITALS: BP 151/60
== END 2022-06-12 10:31 | disposition home or self-care (01) ==
LOC: ER 18:33 → PCU 18:34
PROVIDERS: Emergency Medicine; Nurse Practitioner Acute Care; Student in an Organized Health Care Education/Training Program; ADMIT Internal Medicine
DX: D50.9 Iron deficiency anemia, unspecified (principal); R33.9 Retention of urine, unspecified; I73.9 Peripheral vascular disease, unspecified; F32.9 Major depressive disorder, single episode, unspecified; K21.9 Gastro-esophageal reflux disease without esophagitis; J44.9 Chronic obstructive pulmonary disease, unspecified; I10 Essential (primary) hypertension; E78.5 Hyperlipidemia, unspecified; Z66 Do not resuscitate; Z20.822 Contact with and (suspected) exposure to COVID-19
CPT/HCPCS: 0241U; 36415; 36430; 51701; 70360; 71045; 80048; 80053; 81003; 82728; 82803; 83540; 83550; 83880; 84484; 85025; 85027; 86850; 86900; 86901; 86923; 93005; 93010; 96365; 96366; 96374; 96375; 96376; 99285-25; A9270; C9113; G0378; G0480; J2916; J7030; J7050; P9016

== ENCOUNTER 2022-06-18 01:12 | Inpatient (IN) | payer OTHER ==
[~2022-06-18] VITALS: Ht 167.6 cm; Wt 68.8 kg
[2022-06-18] VITALS (8 sets, daily range): BP systolic 109–158; BP diastolic 44–87
[2022-06-18 01:52] LABS: Source, Urine Foley catheter
[2022-06-18 02:08] LABS: BASOPHILS ABSOLUTE AUTO 0.08 K/mm3 (0.00-0.23); BASOPHILS PERCENT AUTO 0 % (0-2); EOSINOPHILS PERCENT AUTO 0 % (0-6); Hematocrit 32.9 % (37.0-53.0); IMMATURE GRAN ABSOLUTE AUTO 0.35 K/mm3 (0.00-0.10); IMMATURE GRAN PERCENT AUTO 1 % (0-1); LYMPHOCYTES ABSOLUTE AUTO 0.93 K/mm3 (0.84-5.20); LYMPHOCYTES PERCENT AUTO 3 % (21-46); MONOCYTES ABSOLUTE AUTO 3.54 K/mm3 (0.16-1.47); MONOCYTES PERCENT AUTO 11 % (4-13); Mean Corpuscular HGB 27.8 pg (26.0-34.0); Mean Corpuscular HGB Conc 30.4 g/dL (31.5-36.5); Mean Corpuscular Volume 91 fL (80-100); Mean Platelet Volume 10.3 fL (9.1-12.4); NEUTROPHILS ABSOLUTE AUTO 27.81 K/mm3 (1.96-9.15); NEUTROPHILS PERCENT AUTO 85 % (41-73); Platelet Count 566 K/mm3 (150-400); RDW Coefficient Variation 17.3 % (11.7-14.2); RDW Standard Deviation 58.1 fL (35.1-46.3); White Blood Cell Count 32.71 K/mm3 (4.00-11.30)
[2022-06-18 02:22] LABS: Bilirubin, Urine Neg (Neg); Blood, Urine 5+ (Neg); Glucose Qualitative, Urine Neg (Neg); Ketones, Urine Neg (Neg); Leukocyte Esterase, Urine 3+ (Neg); Nitrite, Urine Neg (Neg); Protein, Urine 3+ (Neg); Specific Gravity, Urine 1.015 (1.003-1.022); Urobilinogen, Urine NORM (Normal)
[2022-06-18 02:28] LABS: Albumin, Blood 3.2 g/dL (3.4-5.0); Albumin/Globulin Ratio 0.6 (0.8-1.8); Bilirubin, Total 0.8 mg/dL (0.1-1.0); Bun/Creatinine Ratio 16.2 (12.0-20.0); Creatinine, Blood 0.8 mg/dL (0.60-1.20); Potassium, Blood 3.9 mmol/L (3.5-5.5); Total Protein, Blood 8.2 g/dL (6.4-8.2)
[2022-06-18 02:32] LABS: Appearance, Urine Hazy (Clear); Color, Urine Yellow (P-Yellow)
[2022-06-18 02:34] LABS: Bacteria Many /hpf; Red Blood Cells, Urine 25-50 /hpf (0-2); Squamous Epithelial Cells Rare /hpf (Few); White Blood Cells, Urine 25-50 /hpf (0-5)
[2022-06-18 05:25] LABS: BASOPHILS ABSOLUTE AUTO 0.07 K/mm3 (0.00-0.23); BASOPHILS PERCENT AUTO 0 % (0-2); EOSINOPHILS PERCENT AUTO 0 % (0-6); Hematocrit 29.5 % (37.0-53.0); Hemoglobin 8.8 g/dL (13.5-17.5); IMMATURE GRAN ABSOLUTE AUTO 0.31 K/mm3 (0.00-0.10); IMMATURE GRAN PERCENT AUTO 1 % (0-1); LYMPHOCYTES ABSOLUTE AUTO 1.05 K/mm3 (0.84-5.20); LYMPHOCYTES PERCENT AUTO 4 % (21-46); MONOCYTES ABSOLUTE AUTO 2.61 K/mm3 (0.16-1.47); MONOCYTES PERCENT AUTO 9 % (4-13); Mean Corpuscular HGB 27.6 pg (26.0-34.0); Mean Corpuscular HGB Conc 29.8 g/dL (31.5-36.5); Mean Corpuscular Volume 93 fL (80-100); Mean Platelet Volume 10.3 fL (9.1-12.4); NEUTROPHILS ABSOLUTE AUTO 25.22 K/mm3 (1.96-9.15); NEUTROPHILS PERCENT AUTO 86 % (41-73); Platelet Count 514 K/mm3 (150-400); RDW Coefficient Variation 17.5 % (11.7-14.2); RDW Standard Deviation 59.7 fL (35.1-46.3); Red Blood Cell Count 3.19 M/mm3 (4.30-5.90); White Blood Cell Count 29.26 K/mm3 (4.00-11.30)
[2022-06-18 05:41] LABS: Albumin, Blood 2.7 g/dL (3.4-5.0); Albumin/Globulin Ratio 0.6 (0.8-1.8); Bilirubin, Total 0.6 mg/dL (0.1-1.0); Bun/Creatinine Ratio 17.2 (12.0-20.0); Calcium, Blood 8.3 mg/dL (8.5-10.1); Creatinine, Blood 0.75 mg/dL (0.60-1.20); Globulin, Blood 4.3 g/dL (2.2-4.0); Potassium, Blood 4.1 mmol/L (3.5-5.5)
--- NOTE | 2022-06-18 10:10 | NUR ---
AM NOTE: PATIENT ALERT AND ORIENTED. POOR HISTORIAN, FLAT AND WITHDRAWN IN CONVERSATION. PERRLA, WEARING GLASSES. DENIES N/T. STATES HE USES WHEELCHAIR AT BASELINE. 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 SMALL SCAB PRESENT ON RIGHT FOOT. ON ROOM AIR, LUNGS SOUNDING CLEAR AND DIM IN BASES. RR 26-32. OCCASIONAL NONPRODUCTIVE COUGH. TELE SHOWING SINUS TACH WITH HR 110'S. DENIES CHEST PAIN/PRESSURE/PALPITATIONS. NO SIGNS OF EDEMA. PPP. BP SLIGHTLY ELEVATED. DENIES ABDOMINAL PAIN/NAUSEA. BOWEL TONES PRESENT. CHRONIC VARNER REPLACED IN ED. CATH CARE COMPLETED THIS AM. STAT LOCK PRESENT. URINE YELLOW WITH SMALL AMOUNT OF SEDIMENT DRAINING TO GRAVITY. ATTENDS IN PLACE. DIET ORDERED THIS MORNING, EATING WNL. EDUCATED ELECTROTYPE SERVICER LIGHT AND SAFETY MEASURES. IV FLUIDS INFUSING PER EMAR.
--- NOTE | 2022-06-18 11:20 | NUR ---
[facility] CALLED BY THIS RN BY REQUEST FROM PATIENT AND POA SISTER ABEBE. UPDATED PROVIDED WITH PATIENT PERMISSION. [facility] STAFF PROVIDED PATIENT BASLINE INFORMATION. AT BASELINE PATIENT EATING NORMAL DIET WITH NO SWALLOWING ISSUES, WHEELCHAIR BOUND AT BASELINE, BUT PATIENT ABLE TO TRANSFER SELF TO AND FROM WHEELCHAIR. [facility] STAFF REPORTED RN NOTING BLOOD IN URINE WHEN EMPTYING VARNER CATHETER RECENTLY AND PATIENT REPORTING PAIN ASSOCIATED WITH VARNER CATH. [facility] STAFF ALSO NOTED PATIENT RECENTLY BEING SHORT OF BREATH AND COMPLAINING OF "THROAT SWELLING". AFTERNOON VITALS STABLE, TEMPERATURE WNL. PATIENT DENIES PAIN. RESPIRATORY RATE 30, SHALLOW BREATHING. DENIES FEELING SHORT OF BREATH OR ANY "THROAT SWELLING". SATING MID-HIGH 90'S ON ROOM AIR. NO SWELLING OR REDNESS NOTED UPON NECK PALPATION OR VISUALIZATION OF MOUTH/THROAT WITH PEN LIGHT. VARNER CATH CONTINUES TO DRAIN. IV FLUIDS INFUSING PER EMAR. PATIENT DENIES PAIN. CALL LIGHT IN REACH.
--- NOTE | 2022-06-18 17:55 | NUR ---
SHIFT SUMMARY: NO ACUTE CHANGES, SEE PREVIOUS NOTES. PATIENT EATING DINNER AT THIS TIME. DENIES PAIN THROUGHOUT SHIFT. VITAL SIGNS WNL. TMAX 100.2. TELE CONTINUES TO SHOW ST WITH HR 110'S. BP STABLE. VARNER CATH CONTINUES TO DRAIN YELLOW/SEDIMENT URINE. 550ML OUT THIS SHIFT. REMAINS ON ROOM AIR.
[2022-06-19 03:45] VITALS: BP 152/67
[2022-06-19 04:55] LABS: BASOPHILS ABSOLUTE AUTO 0.07 K/mm3 (0.00-0.23); BASOPHILS PERCENT AUTO 0 % (0-2); EOSINOPHILS ABSOLUTE AUTO 0.06 K/mm3 (0.00-0.68); EOSINOPHILS PERCENT AUTO 0 % (0-6); Hematocrit 26.5 % (37.0-53.0); Hemoglobin 7.9 g/dL (13.5-17.5); IMMATURE GRAN ABSOLUTE AUTO 0.18 K/mm3 (0.00-0.10); IMMATURE GRAN PERCENT AUTO 1 % (0-1); LYMPHOCYTES ABSOLUTE AUTO 1.14 K/mm3 (0.84-5.20); LYMPHOCYTES PERCENT AUTO 6 % (21-46); MONOCYTES ABSOLUTE AUTO 1.78 K/mm3 (0.16-1.47); MONOCYTES PERCENT AUTO 9 % (4-13); Mean Corpuscular HGB 27.3 pg (26.0-34.0); Mean Corpuscular HGB Conc 29.8 g/dL (31.5-36.5); Mean Corpuscular Volume 92 fL (80-100); Mean Platelet Volume 10.7 fL (9.1-12.4); NEUTROPHILS ABSOLUTE AUTO 17.09 K/mm3 (1.96-9.15); NEUTROPHILS PERCENT AUTO 84 % (41-73); Platelet Count 418 K/mm3 (150-400); RDW Coefficient Variation 17.1 % (11.7-14.2); RDW Standard Deviation 57.5 fL (35.1-46.3); Red Blood Cell Count 2.89 M/mm3 (4.30-5.90); White Blood Cell Count 20.32 K/mm3 (4.00-11.30)
[2022-06-19 05:23] LABS: Albumin, Blood 2.2 g/dL (3.4-5.0); Albumin/Globulin Ratio 0.6 (0.8-1.8); Bilirubin, Total 0.5 mg/dL (0.1-1.0); Bun/Creatinine Ratio 17.3 (12.0-20.0); Calcium, Blood 8.2 mg/dL (8.5-10.1); Creatinine, Blood 0.7 mg/dL (0.60-1.20); Globulin, Blood 3.9 g/dL (2.2-4.0); Potassium, Blood 3.2 mmol/L (3.5-5.5); Total Protein, Blood 6.1 g/dL (6.4-8.2)
--- NOTE | 2022-06-19 06:01 | NUR ---
SHIFT SUMMARY NO ACUTE CHANGES NOTED, PT REMAINS A&O X4, VSS, HR TACHY 100-115, TMAX OF 99.5, RESP UNLABORED, ON RA, DENIES PAIN, ABLE TO REPOSITON SELF IN BED, 800 ML'S YELLOW URINE NOTED IN VARNER, CATH CARE PROVIDED, CALL LIGHT IN REACH, WCTM & REPORT TO DAY RN.
--- NOTE | 2022-06-19 07:14 | NUR ---
ASSUMED CARE: PT RESTING QUIETLY AT THIS TIME. SINUS TACH AT 103 ON TELE. NO ACUTE NEEDS OR CONCERNS AT PRESENT.
[2022-06-19 07:51] VITALS: BP 148/66
--- NOTE | 2022-06-19 09:00 | NUR ---
DR PERSON HERE TO SEE PT AND AWARE OF DECREASING H/H. DR FEELS RELATED TO DILUTION AFTER SEPSIS FLUID RESUCITATION. DR WANTS TO DO 6 HOURS OF BLADDER TRAINING THEN DC VARNER. CLAMP IN PLACE AT THIS TIME TO START THIS.
--- NOTE | 2022-06-19 13:25 | NUR ---
PT C/O PAIN IN HIS FEET. STATES IT IS CHRONIC PAIN FROM AN INJURY. CALL TO DR ROWE WHO STATES SHE WILL COME SPEAK WITH PT REGARDING PAIN MANAGEMENT METHODS.
--- NOTE | 2022-06-19 15:19 | NUR ---
[facility] care visit conducted. Patient is lying in bed and alert. He talks about his medical issues, his living arrangements at [facility] in [place], the close proximity to his sister and the slownees of connection with the residents at the facility. He states that he does not really have in spiritual beliefs and that he is struggling to find meaning these days. He states that he feels like his "life is out there just flapping in the wind. I conduct a life review reflecting on his ability to overcome and find meaning in his work. We explore sources of meaning, purpose and value as we find palces to anchor his emotions and thoughts. Patient responded quite well and showed signs of an increased sense of distiny and ability to find value in the little things. Patient showed signs of a renewed purpose and hope. I will continue to remain available to patient and family.
[2022-06-19 15:45] VITALS: BP 146/57
--- NOTE | 2022-06-19 17:22 | NUR ---
SHIFT SUMMARY: PT RESTING IN BED QUIETLY. VSS THIS SHIFT. MEDICAL STATUS NO TELE, CONTINUING TO RECOVER PT FROM SEPSIS. DR INSTRUCTED TO REMOVE VARNER. VARNER REMOVED AT 1400. DR INSTRUCTED TO BLADDER SCAN EVERY 6 HOURS NEEDED AND STRAIGHT CATH FOR GREATER THAN 700 MLS. NO VOID AT THIS TIME. FAMILY WAS HERE THIS AM AND WAS GIVEN UPDATED. NO FURTHER NEEDS OR CONCERNS AT THIS TIME.
--- NOTE | 2022-06-19 18:28 | NUR ---
PT TRANSFERRED TO MEDICAL FLOOR VIA BED. REPORT GIVEN TO MICHELINE DONNELLY. NO FURTHER NEEDS OR CONCERNS AT THIS TIME.
[2022-06-19 19:41] VITALS: BP 161/79
[2022-06-20 03:22] VITALS: BP 178/85
[2022-06-20 04:52] VITALS: BP 144/84
[2022-06-20 05:05] LABS: BASOPHILS ABSOLUTE AUTO 0.05 K/mm3 (0.00-0.23); BASOPHILS PERCENT AUTO 1 % (0-2); EOSINOPHILS ABSOLUTE AUTO 0.13 K/mm3 (0.00-0.68); EOSINOPHILS PERCENT AUTO 1 % (0-6); Hematocrit 27.8 % (37.0-53.0); Hemoglobin 8.4 g/dL (13.5-17.5); IMMATURE GRAN ABSOLUTE AUTO 0.08 K/mm3 (0.00-0.10); IMMATURE GRAN PERCENT AUTO 1 % (0-1); LYMPHOCYTES ABSOLUTE AUTO 0.97 K/mm3 (0.84-5.20); LYMPHOCYTES PERCENT AUTO 9 % (21-46); MONOCYTES ABSOLUTE AUTO 1.21 K/mm3 (0.16-1.47); MONOCYTES PERCENT AUTO 11 % (4-13); Mean Corpuscular HGB 27.2 pg (26.0-34.0); Mean Corpuscular HGB Conc 30.2 g/dL (31.5-36.5); Mean Corpuscular Volume 90 fL (80-100); Mean Platelet Volume 10.5 fL (9.1-12.4); NEUTROPHILS ABSOLUTE AUTO 8.67 K/mm3 (1.96-9.15); NEUTROPHILS PERCENT AUTO 78 % (41-73); NRBC ABSOLUTE 0.02 K/mm3 (0.00-0.02); NRBC Auto 0.2 /100 WBC (0.0-0.2); Platelet Count 382 K/mm3 (150-400); RDW Coefficient Variation 16.7 % (11.7-14.2); RDW Standard Deviation 54.2 fL (35.1-46.3); Red Blood Cell Count 3.09 M/mm3 (4.30-5.90); White Blood Cell Count 11.11 K/mm3 (4.00-11.30)
--- NOTE | 2022-06-20 05:13 | NUR ---
PATIENT IS ORIENTED X4, COOPERATIVE WITH CARE, WHEELCHAIR AT BASELINE AND BEDREST THIS SHIFT. CALLS TO MAKE NEEDS KNOWN. BLE PAIN TREATED PER MAR X2 WITH ULTRAM, HTN TREATED WITH 1X HYDRALAZINE WITH GOOD RESULTS. POST INC VOID BLADDER SCAN RESIDUALS WNL, NO NEED TO STRAIGHT CATH. IV ANTIBIOTICS ADMINISTERED. WILL CONT TO MONITOR.
[2022-06-20 05:39] LABS: Bun/Creatinine Ratio 17.6 (12.0-20.0); Calcium, Blood 8.7 mg/dL (8.5-10.1); Creatinine, Blood 0.74 mg/dL (0.60-1.20); Potassium, Blood 3.6 mmol/L (3.5-5.5)
[2022-06-20 08:32] VITALS: BP 168/67
[2022-06-20 08:33] VITALS: BP 145/54
[2022-06-20 15:07] VITALS: BP 130/62
--- NOTE | 2022-06-20 17:41 | NUR ---
PATIENT IS ALERT AND ORIENTED AND COOPERATIVE WITH CARE. PATIENT WORKED WITH PT AND OT. TRANSFERRED TO CHAIR, BSC AND WHEELCHAIR THIS SHIFT. PATIENT C/O SOB THIS MORNING. HIS O2 SATURATION AT THIS TIME WAS OVER 95% ON RA. CHEST XR ORDERED BY WILL CONTINUE TO MONITOR
[2022-06-20 19:43] VITALS: BP 142/61
[2022-06-21 05:13] LABS: BASOPHILS ABSOLUTE AUTO 0.07 K/mm3 (0.00-0.23); BASOPHILS PERCENT AUTO 1 % (0-2); EOSINOPHILS ABSOLUTE AUTO 0.15 K/mm3 (0.00-0.68); EOSINOPHILS PERCENT AUTO 2 % (0-6); Hematocrit 28.5 % (37.0-53.0); Hemoglobin 8.4 g/dL (13.5-17.5); IMMATURE GRAN ABSOLUTE AUTO 0.05 K/mm3 (0.00-0.10); IMMATURE GRAN PERCENT AUTO 1 % (0-1); LYMPHOCYTES ABSOLUTE AUTO 0.85 K/mm3 (0.84-5.20); LYMPHOCYTES PERCENT AUTO 11 % (21-46); MONOCYTES ABSOLUTE AUTO 1.17 K/mm3 (0.16-1.47); MONOCYTES PERCENT AUTO 15 % (4-13); Mean Corpuscular HGB Conc 29.5 g/dL (31.5-36.5); Mean Corpuscular Volume 92 fL (80-100); Mean Platelet Volume 10.2 fL (9.1-12.4); NEUTROPHILS ABSOLUTE AUTO 5.75 K/mm3 (1.96-9.15); NEUTROPHILS PERCENT AUTO 71 % (41-73); Platelet Count 352 K/mm3 (150-400); RDW Coefficient Variation 16.7 % (11.7-14.2); RDW Standard Deviation 55.9 fL (35.1-46.3); Red Blood Cell Count 3.11 M/mm3 (4.30-5.90); White Blood Cell Count 8.04 K/mm3 (4.00-11.30)
--- NOTE | 2022-06-21 05:32 | NUR ---
PT IS A&O4, UP SB TO BSC, RA, NO SOB THIS SHIFT, NO COMPLAINTS OF PAIN OVERNIGHT, CONTINUE POC
[2022-06-21 05:59] LABS: Bun/Creatinine Ratio 18.8 (12.0-20.0); Calcium, Blood 8.6 mg/dL (8.5-10.1); Creatinine, Blood 0.8 mg/dL (0.60-1.20); Potassium, Blood 3.9 mmol/L (3.5-5.5)
[2022-06-21 08:13] VITALS: BP 155/67
[2022-06-21] MEDS ORDERED: LACT PO (11:35)
[2022-06-21] MEDS ORDERED: CEFD300 PO (11:35)
[2022-06-21] MEDS ORDERED: TAMS.4ER PO (11:35)
--- NOTE | 2022-06-21 14:18 | NUR ---
PT LEFT IN WC VIA TRANSPORT-DC BACK TO [facility] IN STABLE CONDITION. PT LEFT WITH ALL BELONGINGS. REPORT GIVEN TO "DIANE" AT [facility]. ALL QUESTIONS ANSWERED.
== END 2022-06-21 12:12 | disposition home or self-care (01) | DRG 698 ==
LOC: ER 01:12 → PCU 03:57 → MEDS 06-19 18:24 → ENPENDDIS 06-21 10:45 → MEDS 06-21 12:12
PROVIDERS: Emergency Medicine; Family Medicine; ADMIT Internal Medicine
PROC: 3E03329 Introduction of Other Anti-infective into Peripheral Vein, Percutaneous Approach (ICD-10-PCS; principal; 2022-06-18)
PROC: 0T2BX0Z Change Drainage Device in Bladder, External Approach (ICD-10-PCS; 2022-06-18)
DX: T83.511A Infection and inflammatory reaction due to indwelling urethral catheter, initial encounter (principal); A41.51 Sepsis due to Escherichia coli [E. coli]; G93.41 Metabolic encephalopathy; R65.20 Severe sepsis without septic shock; E87.20 Acidosis, unspecified; N39.0 Urinary tract infection, site not specified; F32.A Depression, unspecified; D50.9 Iron deficiency anemia, unspecified; I73.9 Peripheral vascular disease, unspecified; R33.9 Retention of urine, unspecified; I10 Essential (primary) hypertension; E78.5 Hyperlipidemia, unspecified; Y84.6 Urinary catheterization as the cause of abnormal reaction of the patient, or of later complication, without mention of misadventure at the time of the procedure; B95.2 Enterococcus as the cause of diseases classified elsewhere; Z79.899 Other long term (current) drug therapy; Z79.02 Long term (current) use of antithrombotics/antiplatelets; Z79.01 Long term (current) use of anticoagulants; Z89.432 Acquired absence of left foot; Z87.891 Personal history of nicotine dependence
CPT/HCPCS: 36415; 51702; 71045; 80048; 80053; 81001; 83605; 83880; 85025; 87040; 87077; 87086; 87186; 93005; 93010; 96365-59; 97110; 97162; 97166; 97530; 97535; 99285-25; A9270; C9113; J0360; J0696; J1650; J7030

== ENCOUNTER → 2023-11-06 | Outpatient (CLI) | payer OTHER ==
[~2023-11-06] MED LIST changes: +ACET325 PO; +CEFD300 PO; +DOCU100 PO; +LACT PO; +MIRALAX17 GM PO; +TAMS.4ER PO
[2023-11-09 01:05] LABS: ALPHA-1 %,URINE 4.4 %; BETA GLOBULIN %,URINE 8.8 %; GAMMA GLOBULIN %,URINE 2.8 %; HOURS COLLECTED Random hr; TOTAL VOLUME Random mL
== END ==
LOC: LAB 12:19 → LAB SHORT 12:19
PROVIDERS: Internal Medicine Nephrology
DX: E11.21 Type 2 diabetes mellitus with diabetic nephropathy (principal); N18.30 Chronic kidney disease, stage 3 unspecified; D63.1 Anemia in chronic kidney disease; N25.81 Secondary hyperparathyroidism of renal origin; E55.9 Vitamin D deficiency, unspecified; E78.00 Pure hypercholesterolemia, unspecified; R76.9 Abnormal immunological finding in serum, unspecified; R94.5 Abnormal results of liver function studies; R94.6 Abnormal results of thyroid function studies; D51.8 Other vitamin B12 deficiency anemias; D50.9 Iron deficiency anemia, unspecified
CPT/HCPCS: 84156; 84166; 86335

== ENCOUNTER 2024-02-16 21:28 | Emergency (ER) | payer OTHER ==
[~2024-02-16] VITALS: Ht 172.7 cm; Wt 72.6 kg
[2024-02-16 22:53] VITALS: BP 143/79
[2024-02-16 23:06] LABS: Source, Urine Foley catheter
[2024-02-16 23:21] LABS: Appearance, Urine Hazy (Clear); Bilirubin, Urine Neg (Neg); Blood, Urine 3+ (Neg); Color, Urine Yellow (P-Yellow); Glucose Qualitative, Urine Neg (Neg); Ketones, Urine Neg (Neg); Leukocyte Esterase, Urine 2+ (Neg); Nitrite, Urine Neg (Neg); Protein, Urine 3+ (Neg); Specific Gravity, Urine 1.015 (1.003-1.022); Urobilinogen, Urine NORM (Normal)
[2024-02-16 23:32] LABS: Amorphous Light (0-Heavy); Bacteria Mod /hpf; Squamous Epithelial Cells Mod /hpf (Few)
[2024-02-16] MEDS ORDERED: Cephalexin Monohydrate 500 MG Cap PO ONE (23:40)
[2024-02-16] MEDS ORDERED: CEPH500 PO (23:42)
== END 2024-02-17 06:27 | disposition home or self-care (01) ==
LOC: ER 21:28
PROVIDERS: Student in an Organized Health Care Education/Training Program
DX: T83.091A Other mechanical complication of indwelling urethral catheter, initial encounter (principal); R33.8 Other retention of urine; T83.511A Infection and inflammatory reaction due to indwelling urethral catheter, initial encounter; N39.0 Urinary tract infection, site not specified; I10 Essential (primary) hypertension; E78.00 Pure hypercholesterolemia, unspecified; Z79.01 Long term (current) use of anticoagulants; Z79.899 Other long term (current) drug therapy
CPT/HCPCS: 51702; 51798; 81001; 87077; 87086; 87186; 99283; A9270

== ENCOUNTER 2024-09-01 16:24 | Emergency (ER) | payer MEDICARE, OTHER ==
[~2024-09-01] VITALS: Ht 167.6 cm; Wt 72.6 kg
[2024-09-01 16:25] VITALS: BP 134/74
[2024-09-01 17:16] LABS: Source, Urine Clean Catch
[2024-09-01 17:50] LABS: Bilirubin, Urine Neg (Neg); Color, Urine Yellow (P-Yellow); Glucose Qualitative, Urine Neg (Neg); Ketones, Urine Neg (Neg); Leukocyte Esterase, Urine 3+ (Neg); Protein, Urine 2+ (Neg); Specific Gravity, Urine 1.010 (1.003-1.022); Urobilinogen, Urine NORM (Normal)
[2024-09-01] MEDS ORDERED: CEFP200 PO (18:37)
== END 2024-09-01 19:08 | disposition home or self-care (01) ==
LOC: ER 16:24
PROVIDERS: Student in an Organized Health Care Education/Training Program
DX: N39.0 Urinary tract infection, site not specified (principal); T83.84XA Pain due to genitourinary prosthetic devices, implants and grafts, initial encounter; I10 Essential (primary) hypertension; E78.00 Pure hypercholesterolemia, unspecified; Z87.891 Personal history of nicotine dependence; Z79.01 Long term (current) use of anticoagulants; Z79.02 Long term (current) use of antithrombotics/antiplatelets; Z79.899 Other long term (current) drug therapy; Z59.89 Other problems related to housing and economic circumstances
CPT/HCPCS: 81001; 87077; 87086; 87186; 99284